=== PATIENT | female | born 1965 | race Caucasian/White ===

== ENCOUNTER 2019-08-09 09:44 | Outpatient (CLI) | payer OTHER, SELFPAY ==
--- NOTE | ~2019-08-09 | DEXA_ITS ---
Bone Density Report Name: Santa Harden Age: 54 Sex: Female Ethnicity: White Date of : 1965 Indication: osteopenia; height loss; prior fracture; hysterectomy; Referring Provider: Jama, Simi Desir Study: Bone densitometry was performed. Exam Date: August 09, 2019 Accession number: [id number] Bone Density: Region BMD T-score Z-score Classification Femoral Neck (Left) 0.661 -1.7 -0.8 Osteopenia Total Hip (Left) 0.863 -0.6 -0.1 Normal Total Hip Bilateral Avg 0.869 -0.6 -0.1 Normal Femoral Neck (Right) 0.702 -1.3 -0.4 Osteopenia Total Hip (Right) 0.875 -0.6 0.0 Normal World Health Organization criteria for BMD impression classify patients as: Normal (T-score at or above -1.0), Osteopenia (T-score between -1.0 and -2.5), or Osteoporosis (T-score at or below -2.5). 10-year Fracture Risk: FRAX not reported because: Prior hip or vertebral fracture Previous Exams: Region Exam Age BMD T-score BMD Change BMD Change Date g/cm2 vs Baseline vs Previous Total Hip(Left) 08/09/2019 54 0.863 -0.6 0.106(14.0%)# 0.133(18.3%)# 09/09/2006 41 0.729 -1.7 -0.027(-3.6%) -0.027(-3.6%) 09/04/2001 36 0.756 -1.5 Total Hip(Right) 08/09/2019 54 0.875 -0.6 0.082(10.4%)# 0.088(11.2%)# 09/09/2006 41 0.786 -1.3 -0.006(-0.8%) -0.006(-0.8%) 09/04/2001 36 0.793 -1.2 *Denotes significance at 95% confidence level, LSC for Total Hip = 0.027 g/cm2 Clinical Information Provided by Patient: Have had a previous hip or vertebral fracture Has had a low trauma fracture Has used the following medications: Vitamin D, Calcium Has the following medical conditions: Hysterectomy Patient maximum height was 67 Menopause Age: 39 Drinks caffeinated beverages Onset of menses at age 18 Number of children 1 Impression: The patient has low bone mass, based on the Left Femoral Neck T-score. The patient has risk factors, including: previous fracture. No significant bone loss was observed. Discussion: INCREASED RISK OF FRACTURE DUE TO HISTORY OF FRACTURE. The patient's previous fracture puts the patient at high risk of a future fracture. In untreated patients, the risk of osteoporotic fracture increases approximately two-fold for each 1.0 SD decrease in T-score. Low bone density is not the only risk factor for fracture; also consider factors such as patient's age, frailty or poor health, risk of falling, risk of injury, previous osteoporotic fracture, family history of osteoporosis, cigarette smoking, low body weight, etc.
== END 2019-08-09 09:45 | disposition home or self-care (01) ==
LOC: ANHIMG 10:00
PROVIDERS: PCP Family Medicine Adolescent Medicine; Visit Provider Physician Assistant
DX: Z78.0 Asymptomatic menopausal state (principal); M85.89 Other specified disorders of bone density and structure, multiple sites
CPT/HCPCS: 77080

== ENCOUNTER 2020-08-13 12:29 | Outpatient (CLI) | payer OTHER, SELFPAY ==
--- NOTE | ~2020-08-13 | MR_ITS ---
EXAMINATION: MR cervical spine wo con EXAM DATE: 08/13/2020 13:37 INDICATION: Left shoulder pain. TECHNIQUE: Multi-sequential, multiplanar MR images of the cervical spine were obtained without contra st. Axial T2, axial T2 MERGE sequence. Sagittal T1, T2, T2 fat saturation images also obtained. Com parison is made to prior examination from 06/16/2013. FINDINGS: There is thoracic fusion hardware. The vertebral bodies are aligned in the AP dimension. V ertebral body and disc heights are well-maintained. The spinal cord signal intensity and intrinsic mo rphology is normal. Cervicomedullary junction is normal in appearance. Mild cervical dextroscoliosis. Paraspinal soft tissue is unremarkable. Level by level evaluation: C2-C3: Disc does not extend beyond the endplate margin. Uncovertebral joint arthropathy: None. Facet joint arthropathy: Moderate left, mild right. Neural foraminal stenosis: No stenosis. Central canal stenosis: No stenosis. C3-C4: Disc does not extend beyond the endplate margin. Uncovertebral joint arthropathy: None. Facet joint arthropathy: Mild to moderate bilateral. Neural foraminal stenosis: No stenosis. Central canal stenosis: No stenosis. C4-C5: Disc does not extend beyond the endplate margin. Uncovertebral joint arthropathy: Minimal bilateral. Facet joint arthropathy: Mild to moderate bilateral. Neural foraminal stenosis: No stenosis. Central canal stenosis: No stenosis. C5-C6: Disc does not extend beyond the endplate margin. Uncovertebral joint arthropathy: Mild bilateral. Facet joint arthropathy: Mild bilateral. Neural foraminal stenosis: No stenosis. Central canal stenosis: No stenosis. C6-C7: There is a minimal diffuse disc bulge. Uncovertebral joint arthropathy: Mild bilateral. Facet joint arthropathy: Minimal bilateral. Neural foraminal stenosis: No stenosis. Central canal stenosis: No stenosis. C7-T1: Disc does not extend beyond the endplate margin. Uncovertebral joint arthropathy: None. Facet joint arthropathy: Minimal bilateral. Neural foraminal stenosis: No stenosis. Central canal stenosis: No stenosis. Development of minimal lower cervical disc disease compared to prior study. IMPRESSION: Mild cervical spondylosis and mild dextroscoliosis. Reviewed, dictated and finalized at location B. 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
== END 2020-08-13 12:30 | disposition home or self-care (01) ==
PROVIDERS: PCP Family Medicine Adolescent Medicine; Visit Provider Physician Assistant
DX: M47.22 Other spondylosis with radiculopathy, cervical region (principal)
CPT/HCPCS: 72141

== ENCOUNTER → 2021-05-07 12:17 | Outpatient (CLI) | payer OTHER, SELFPAY ==
--- NOTE | ~2021-05-07 | MM_ITS ---
EXAMINATION: MM screening pari BI w giovani HISTORY: Screening mammogram TECHNIQUE: Craniocaudal and mediolateral oblique 3-D tomosynthesis images were obtained and synthetic 2-D images were generated. CAD analysis was submitted and interpreted. COMPARISON: 03/07/2019, 11/16/2017, 11/13/2016 bilateral screening mammogram examinations BREAST PARENCHYMAL COMPOSITION: The breasts are heterogeneously dense, which may obscure small masses . FINDINGS: There is no evidence of suspicious mass, calcification, or architectural distortion to sugg est malignancy in either breast. There has been no suspicious interval change. IMPRESSION: 1. No mammographic evidence of malignancy. 2. Recommend routine screening mammography in one year. BI-RADS Category 1: Negative Reviewed, dictated and finalized at location A. 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
== END ==
PROVIDERS: Visit Provider Obstetrics & Gynecology
DX: Z12.31 Encounter for screening mammogram for malignant neoplasm of breast (principal)
CPT/HCPCS: 77063; 77067

== ENCOUNTER → 2021-12-25 09:02 | Outpatient (CLI) | payer OTHER, MEDICARE, SELFPAY ==
--- NOTE | ~2021-12-25 | XR_ITS ---
XR chest 2V DATE: 12/25/2021 09:34 INDICATION: Shortness of breath TECHNIQUE: 2 views COMPARISON: None FINDINGS: Bilateral thoracolumbar and right lower thoracic spinal rods with pedicle screws. Mild thor acic dextroscoliosis. Prominent diffuse osteopenia. Status post right thoracotomy with resection of right seventh rib. Bilateral hyperinflation suggesting obstructive airways disease. No pulmonary infiltrate or consolida tion, pleural effusion or pulmonary vascular congestion or pulmonary mass lesion is evident. Heart size appears within normal limits. Hiatal hernia is suggested. IMPRESSION: Bilateral thoracolumbar spinal rods and lower right lateral thoracic spinal rods and scre ws Bilateral moderate hyperinflation suggesting obstructive airways disease Reviewed, dictated and finalized at location B. IMPRESSION: Bilateral thoracolumbar spinal rods and lower right lateral thoraci c spinal rods and screws Bilateral moderate hyperinflation suggesting obstructive airways disease
== END ==
PROVIDERS: PCP Family Medicine Adolescent Medicine; Visit Provider Physician Assistant
DX: R06.02 Shortness of breath (principal); R91.8 Other nonspecific abnormal finding of lung field
CPT/HCPCS: 71046

== ENCOUNTER 2022-01-02 15:09 | Outpatient (CLI) | payer OTHER, MEDICARE, SELFPAY ==
--- NOTE | ~2022-01-02 | CT_ITS ---
EXAMINATION: CTA chest PE protocol DATE: 01/02/2022 15:59 CDT INDICATION: Dyspnea TECHNIQUE: Computed tomographic angiography (CTA) of the chest was performed with 100 mL Omnipaque-35 0 intravenous contrast. The dose-length product was 231.43 mGy-cm. Maximum intensity projection 3D-re constructions of the aorta and other arteries were constructed by the technologist on a separate work station. Automated exposure control and iterative reconstruction technique were employed. COMPARISON: None. FINDINGS: Study is technically adequate. There are small filling defects in the left lower lobe pulmo nary artery and segmental pulmonary arteries consistent with pulmonary embolism, small thrombus burde n. Evaluation of the peripheral pulmonary arteries somewhat limited by motion artifact. No evidence f or aortic aneurysm or dissection. No thoracic lymphadenopathy. No endobronchial lesions. There is bib asilar dependent atelectasis. Evaluation of lung parenchyma limited by motion artifact. Cardiomegaly. Large hiatal hernia. There are surgical changes consistent with fusion of the thoracic spine with at least partial surgical resection of the lower thoracic spine. IMPRESSION: 1. Pulmonary embolism involving the left lower lobe main pulmonary artery and left lower lobe subsegm ental pulmonary arteries, small thrombus burden. 2: Cardiomegaly. 3: Large hiatal hernia. Kavya Shipman will be called by the front office staff with regards to the results on 01/02/2022 Reviewed, dictated and finalized at location A. IMPRESSION: 1. Pulmonary embolism involving the left lower lobe main pulmonary artery and l eft lower lobe subsegmental pulmonary arteries, small thrombus burden. 2: Cardiomegaly. 3: Large hiatal hernia. Kavya Shipman will be called by the front office staff with regards to the results on 01/02/2022
== END 2022-01-02 15:10 | disposition home or self-care (01) ==
PROVIDERS: PCP Family Medicine Adolescent Medicine; Visit Provider Physician Assistant
DX: R06.00 Dyspnea, unspecified (principal); I51.7 Cardiomegaly; K44.9 Diaphragmatic hernia without obstruction or gangrene; I26.99 Other pulmonary embolism without acute cor pulmonale
CPT/HCPCS: 71275; Q9967

== ENCOUNTER 2022-01-16 12:08 | Outpatient (CLI) | payer OTHER, MEDICARE, SELFPAY ==
--- NOTE | ~2022-01-16 | US_ITS ---
EXAMINATION:US venous doppler LE BI INDICATION:Pulmonary embolism. Leg pain. TECHNIQUE: Multiple grayscale, color flow and Doppler images of the right and left lower extremity de ep venous systems were obtained and reviewed. COMPARISON:No prior studies for comparison. FINDINGS: The common femoral, superficial femoral and popliteal veins demonstrate normal respiratory variation, augmentation and compressibility. Color flow is also seen within the posterior tibial, pe roneal, greater saphenous and profunda veins. IMPRESSION: 1: No lower extremity deep venous thrombosis. Reviewed, dictated and finalized at location A.
== END 2022-01-16 12:09 | disposition home or self-care (01) ==
PROVIDERS: PCP Family Medicine Adolescent Medicine; Visit Provider Physician Assistant
DX: I26.99 Other pulmonary embolism without acute cor pulmonale (principal)
CPT/HCPCS: 93970

== ENCOUNTER 2022-01-29 14:13 | Outpatient (CLI) | payer OTHER, MEDICARE, SELFPAY ==
[2022-01-29 14:29] LABS: Basophils Absolute Auto 0.1 K/mm3 (0.0-0.1); Basophils Percent Auto 1.1 % (0.2-1.2); Eosinophils Absolute Auto 0.4 K/mm3 (0-0.3); Eosinophils Percent Auto 4.7 % (0-4.4); Hematocrit 37.7 % (37.0-47.0); Hemoglobin 11.3 g/dL (12.0-15.0); Immature Granulocyte Absolute 0.02 K/mm3 (0.00-0.031); Immature Granulocyte Percent A 0.3 % (0-0.5); Lymphocytes Absolute Auto 2.05 K/mm3 (0.9-3.2); Lymphocytes Percent Auto 27.7 % (18.3-44.2); Mean Corpuscular Hemoglobin 24.6 pg (26-34); Mean Platelet Volume 8.9 fl (7.4-10.4); Monocytes Absolute Auto 0.6 K/mm3 (0.1-0.6); Monocytes Percent Auto 7.6 % (2.6-8.5); Neutrophils Absolute Auto 4.3 K/mm3 (1.3-6.7); Neutrophils Percent Auto 58.6 % (45.5-73.1); Platelet Count Result 404 k/mm3 (150-375); Red Cell Distribution Width 17.8 % (11.5-14.5); White Blood Count 7.4 K/mm3 (4.5-10.0)
[2022-01-29 15:24] LABS: Iron 34 ug/dL (37-170)
[2022-01-29 15:37] LABS: Alanine Aminotransferase 25 U/L (6-35); Albumin Level 4.6 g/dL (3.5-5.1); Alkaline Phosphatase 87 U/L (38-126); Anion Gap 12 mmol/L (8-16); Aspartate Amino Transferase 23 U/L (14-36); Bilirubin,Total 0.3 mg/dL (0.2-1.3); Blood Urea Nitrogen 14 mg/dL (7-17); Calcium 9.7 mg/dL (8.4-10.2); Carbon Dioxide 25 mmol/L (22-30); Chloride 102 mmol/L (98-107); Estimated Glomerular Filt Rate > 60; Glucose 103 mg/dL (65-110); Potassium 3.8 mmol/L (3.4-5.0); Sodium 139 mmol/L (137-145)
[2022-01-29 15:38] LABS: Percent Iron Saturation 7 % (20-50)
[2022-01-29 16:47] LABS: Folic Acid > 20.0 ng/mL (2.76->20)
== END 2022-01-29 14:14 | disposition home or self-care (01) ==
LOC: ANHLAB 14:15
PROVIDERS: PCP Family Medicine Adolescent Medicine; Visit Provider Internal Medicine Hematology & Oncology
DX: D64.9 Anemia, unspecified (principal)
CPT/HCPCS: 36415; 80053; 82607; 82728; 82746; 83540; 83550; 85025

== ENCOUNTER 2022-04-07 14:29 | Outpatient (CLI) | payer OTHER, MEDICARE, SELFPAY ==
--- NOTE | ~2022-04-07 | CT_ITS ---
EXAMINATION: CTA chest PE protocol DATE: 04/07/2022 15:03 INDICATION: Pulmonary embolism TECHNIQUE: Computed tomography angiography (CTA) of the chest was performed with 100 mL Omnipaque-350 intravenous contrast timed to evaluate the pulmonary arteries. Coronal maximum intensity projection 3D-reconstructions were created by the technologist. Automated exposure control and iterative reconst ruction technique were employed. Exam dose: 244.04 mGy-cm total exam DLP. COMPARISON: 01/02/2022 CT pulmonary scan FINDINGS: Occasional residual small filling defects are suggested in the left lower lobe pulmonary ar teries. No pulmonary embolism and no right ventricular strain is noted otherwise. No thoracic aortic aneurysm or dissection. Mild cardiomegaly. No pericardial or pleural effusion. No hilar or mediastinal mass lesion or lymphadenopathy. There is some focal atelectasis or fibrotic change adjacent to some spinal hardware projecting into t he medial aspect of the right lower lobe. The lungs are otherwise clear of consolidation. There is a large sliding hiatal hernia. Bilateral thoracic spinal rods and pedicle screws. Bone grafts in the lower thoracic spine. IMPRESSION: Mild residual left lower lobe pulmonary emboli; no right heart strain noted Reviewed, dictated and finalized at Location A. Reviewed, dictated and finalized at location A. IMPRESSION: Mild residual left lower lobe pulmonary emboli; no right heart str ain noted
[2022-04-07 14:55] LABS: Estimated Glomerular Filt Rate 43
== END 2022-04-07 14:30 | disposition home or self-care (01) ==
LOC: ANHIMG 14:34
PROVIDERS: PCP Family Medicine Adolescent Medicine; Visit Provider Internal Medicine Hematology & Oncology
DX: I26.99 Other pulmonary embolism without acute cor pulmonale (principal); R91.8 Other nonspecific abnormal finding of lung field
CPT/HCPCS: 71275; Q9967

== ENCOUNTER 2022-06-17 12:40 | Outpatient (CLI) | payer OTHER, MEDICARE, SELFPAY ==
--- NOTE | 2022-06-17 13:01 | ECHO_ITS ---
Patient Info Name: Santa Harden Age: 57 years : 1965 Gender: Female Ht: 66 in Wt: 148 lbs BSA: 1.78 m2 HR: 85 bpm BP: 118 / 80 mmHg Technical Quality: Fair Exam Date: 06/17/2022 1:08 PM Exam Location: [facility] Patient Status: Outpatient Admit Date: 06/17/2022 Staff Ordering Physician: Bruce Jacobo APRN Steel Shot Header Operator: Alejandra Baltazar RDCS Attending Provider: Bruce Jacobo APRN Referring Physician: Donnell CRAWFORD; Exam Type: CA echo doppler color flow Study Info Indications I26.99 - Other pulmonary embolism without acute cor pulmonale Complete two-dimensional, color flow and Doppler transthoracic echocardiogram is performed. Summary 1. Complete two-dimensional, color flow and Doppler transthoracic echocardiogram is performed. 2. Left ventricular chamber dimension is normal. 3. Left ventricular systolic function is normal, estimated at 65-70%. 4. The left ventricular diastolic function is grade I diastolic dysfunction. 5. E/e' 14 is mildly elevated. 6. Global longitudinal strain is normal at -19.3%. 7. Left atrial chamber dimension is mildly enlarged. 8. The mitral valve has mildly calcified annulus. 9. No pulmonary hypertension, estimated pulmonary arterial systolic pressure is 35 mmHg. Left Ventricle E/e' 14 is mildly elevated. Global longitudinal strain is normal at -19.3%. Left ventricular chamber dimension is normal. Left ventricular systolic function is normal, estimated at 65-70%. The left ventricular diastolic function is grade I diastolic dysfunction. Right Ventricle Right ventricular chamber dimension is normal. Right ventricular systolic function is normal. Left Atria Reverberation artifact seen in left atrium. Left atrial chamber dimension is mildly enlarged. Right Atria Right atrial chamber dimension is normal. Aortic Valve The aortic valve is trileaflet. There is no aortic valve stenosis. There is no aortic valve regurgitation. Pulmonic Valve There is no pulmonic regurgitation. Mitral Valve The mitral valve has mildly calcified annulus. There is no mitral valve stenosis. There is no mitral valve regurgitation. Tricuspid Valve There is no tricuspid valve regurgitation. No pulmonary hypertension, estimated pulmonary arterial systolic pressure is 35 mmHg. Pericardium/Pleural There is no pericardial effusion. Inferior Vena Cava Normal inferior vena cava with >50% collapse upon inspiration consistent with normal right atrial pressure, 5 mmHg. Aorta The aortic root size at the sinus of Valsalva is normal. Left Ventricular Outflow Tract Name Value Normal LVOT 2D LVOT Diameter 2.0 cm LVOT Doppler LVOT Peak Gradient 7 mmHg LVOT Mean Gradient 4 mmHg LVOT VTI 26 cm LVOT VTI/AV VTI Ratio 0.9 LVOT Stroke Volume 85 ml LVOT CO 6.9 l/min LVOT CI 3.9 l/min/m2 Pulmonic Valve
== END 2022-06-17 12:41 | disposition home or self-care (01) ==
LOC: ANHCARD 12:41
PROVIDERS: PCP Family Medicine Adolescent Medicine; Visit Provider Nurse Practitioner Family
DX: I26.99 Other pulmonary embolism without acute cor pulmonale (principal); R06.00 Dyspnea, unspecified
CPT/HCPCS: 93306

== ENCOUNTER → 2022-09-22 15:00 | Outpatient (CLI) | payer OTHER, MEDICARE, SELFPAY ==
--- NOTE | ~2022-09-22 | MM_ITS ---
EXAMINATION: MM screening [facility] BI w giovani HISTORY: Screening mammogram TECHNIQUE: Craniocaudal and mediolateral oblique 3-D tomosynthesis images were obtained and synthetic 2-D images were generated. CAD analysis was submitted and interpreted. COMPARISON: 05/07/2021, 03/07/2019, 11/16/2017 BREAST PARENCHYMAL COMPOSITION: There are scattered areas of fibroglandular density. FINDINGS: No suspicious mass, calcification, or architectural distortion are identified in either bro ast to suggest malignancy. There has been no suspicious interval change. IMPRESSION: 1. No mammographic evidence of malignancy. 2. Recommend routine screening mammography in one year. BI-RADS Category 1: Negative Reviewed, dictated and finalized at location A.
== END ==
PROVIDERS: PCP Obstetrics & Gynecology; Visit Provider Obstetrics & Gynecology
DX: Z12.31 Encounter for screening mammogram for malignant neoplasm of breast (principal)
CPT/HCPCS: 77063; 77067

== ENCOUNTER 2023-12-21 13:28 | Outpatient (CLI) | payer OTHER, MEDICARE, SELFPAY ==
--- NOTE | 2023-12-21 | ECG_ITS ---
Test Date: 2023-12-21 14:00:25 Measurements Intervals [place] Rate: 77 P: 70 AK: 166 QRS: 21 QRSD: 81 T: 46 QT: 354 QTc: 401 Interpretive Statements SINUS RHYTHM RSR' IN V1 OR V2, PROBABLY NORMAL VARIANT NORMAL ECG No previous ECG available for comparison Electronically Signed On 12-21-2023 18:07:27 CDT by Milan Frias D.O.
[2023-12-21 14:09] LABS: Alanine Aminotransferase 27 U/L (6-35); Albumin Level 4.6 g/dL (3.5-5.1); Alkaline Phosphatase 71 U/L (38-126); Anion Gap 11 mmol/L (4-12); Aspartate Amino Transferase 26 U/L (14-36); Bilirubin,Total 0.4 mg/dL (0.2-1.3); Blood Urea Nitrogen 19 mg/dL (7-17); Calcium 9.7 mg/dL (8.4-10.2); Carbon Dioxide 26 mmol/L (22-30); Chloride 100 mmol/L (98-107); Estimated Glomerular Filt Rate 57; Glucose 114 mg/dL (65-110); Potassium 4.1 mmol/L (3.4-5.0); Sodium 137 mmol/L (137-145)
== END 2023-12-21 13:29 | disposition home or self-care (01) ==
LOC: ANHLAB 13:31
PROVIDERS: PCP Family Medicine Adolescent Medicine; Visit Provider Podiatrist Foot & Ankle Surgery
DX: Z01.818 Encounter for other preprocedural examination (principal)
CPT/HCPCS: 36415; 80053; 93005

== ENCOUNTER 2023-12-22 15:15 | Outpatient (CLI) | payer OTHER, MEDICARE, SELFPAY ==
--- NOTE | ~2023-12-22 | MR_ITS ---
MRI of the right foot CLINICAL HISTORY: Pain TECHNIQUE: Axial proton-density and proton-density fat-sat images, sagittal T1-weighted and STIR imag es, and coronal T1-weighted and proton-density fat-sat images were performed. FINDINGS: There is a nondisplaced fracture of the cuboid bone with T1 hypointense fracture lines and surrounding marrow edema. There is additional suspected fracture at the distal, lateral aspect of the medial cuneiform and possibly at the medial aspect of the base of the second metatarsal, suspicious for Lisfranc ligament/articulation fracture injury. Additional amorphous marrow edema of the middle a nd lateral cuneiforms is compatible with bone contusions. Flexor and extensor tendons are intact. Intrinsic musculature of the foot unremarkable. No soft tissu e mass or fluid collection evident. IMPRESSION: Suspected fractures at the medial cuneiform and base of second metatarsal, as detailed above, suspici ous for Lisfranc injury. Consider CT scan for better evaluation of fine bony detail. Nondisplaced cuboid fracture, as detailed above. Additional bone contusions of the middle and lateral cuneiforms. Reviewed, dictated and finalized at location M. IMPRESSION: Suspected fractures at the medial cuneiform and base of second metatarsal, as d etailed above, suspicious for Lisfranc injury. Consider CT scan for better eval uation of fine bony detail. Nondisplaced cuboid fracture, as detailed above. Additional bone contusions of the middle and lateral cuneiforms.
== END 2023-12-22 15:16 ==
PROVIDERS: Visit Provider Podiatrist Foot & Ankle Surgery
DX: S92.214A Nondisplaced fracture of cuboid bone of right foot, initial encounter for closed fracture (principal); X58.XXXA Exposure to other specified factors, initial encounter
CPT/HCPCS: 73718

== ENCOUNTER 2024-05-10 11:34 | Outpatient (CLI) | payer OTHER, MEDICARE, SELFPAY ==
--- NOTE | ~2024-05-10 | DEXA_ITS ---
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 Exam Date: May 10, 2024 Accession number: [id number] Bone Density: Region BMD T-score Z-score Classification AP Spine(L3, L4) 0.941 -1.5 -0.2 Osteopenia Femoral Neck (Left) 0.635 -1.9 -0.8 Osteopenia Total Hip (Left) 0.759 -1.5 -0.7 Osteopenia Femoral Neck (Right) 0.698 -1.4 -0.2 Osteopenia Total Hip (Right) 0.830 -0.9 -0.1 Normal Femoral Neck Mean 0.666 -1.6 -0.5 Osteopenia Total Hip Mean 0.794 -1.2 -0.4 Osteopenia World Health Organization criteria for BMD impression classify patients as: Normal (T-score at or above -1.0), Osteopenia (T-score between -1.0 and -2.5), or Osteoporosis (T-score at or below -2.5). 10-year Fracture Risk: FRAX not reported because: Prior hip or vertebral fracture Treated for osteoporosis Clinical Information Provided by Patient: Have had a previous hip or vertebral fracture Has had a low trauma fracture Is being treated for osteoporosis Has used the following medications: Reclast (i.e. zoledronate), Vitamin D, Calcium Has the following medical conditions: Asthma or Emphysema, Hysterectomy Patient maximum height was 67 Menopause Age: 50 Does not regularly consume dairy products Drinks caffeinated beverages Onset of menses at age 18 Number of children 1 Missed period for more than 6 months in a row Impression: The patient has low bone mass, based on the Left Femoral Neck T-score. The patient has risk factors, including: previous fracture. Discussion: It is important to ask patients whether they are taking their medications and to encourage continued and appropriate compliance with their osteoporosis therapies to reduce fracture risk. It is also important to review their risk factors and encourage appropriate calcium and vitamin D intakes, exercise, fall prevention and other lifestyle measures. Follow-Up: Consider a repeat BMD and Vertebral Fracture Assessment (VFA) exam in 2 years or sooner if medically necessary, to reassess this patient's status. Reported by: WILFREDO on 05/10/2024 11:58:00 AM. Reviewed, dictated and finalized at location A.
--- NOTE | ~2024-05-10 | MM_ITS ---
EXAMINATION: MM screening par[facility] BI w giovani HISTORY: Screening TECHNIQUE: Craniocaudal and mediolateral oblique 3-D tomosynthesis images were obtained and synthetic 2-D images were generated. CAD analysis was submitted and interpreted. COMPARISON: Comparison to multiple prior studies sequentially, with oldest reviewed study dated 01/2017. BREAST PARENCHYMAL COMPOSITION: Not dense: There are scattered areas of fibroglandular density. FINDINGS: There are 2 small masses in the lower inner quadrant of the right breast partially obscured by fibroglandular tissue. The left breast is stable without evidence for malignancy. IMPRESSION: 1. Small right breast masses in the lower inner quadrant, new compared with prior studies. 2. Additional mammographic views and possible breast ultrasound are recommended. BI-RADS Category 0: Incomplete: Needs additional imaging evaluation. Reviewed, dictated and finalized at location B. 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 Small right breast masses in the lower inner quadrant, new compared with james or studies. 2. Additional mammographic views and possible breast ultrasound are recommended . BI-RADS Category 0: Incomplete: Needs additional imaging evaluation.
== END 2024-05-10 11:35 | disposition home or self-care (01) ==
PROVIDERS: Visit Provider Family Medicine Adolescent Medicine
DX: Z12.31 Encounter for screening mammogram for malignant neoplasm of breast (principal); Z78.0 Asymptomatic menopausal state; R92.8 Other abnormal and inconclusive findings on diagnostic imaging of breast; M85.89 Other specified disorders of bone density and structure, multiple sites
CPT/HCPCS: 77063; 77067; 77080

== ENCOUNTER 2024-05-13 10:04 | Outpatient (CLI) | payer OTHER, MEDICARE, SELFPAY ==
--- NOTE | ~2024-05-13 | MMUS_ITS ---
EXAMINATION: MM diagnostic pari RT w giovani, US breast RT complete HISTORY: Follow-up right breast masses TECHNIQUE: Additional 3-D tomosynthesis images of the right breast were performed and synthetic 2-D i mages were generated. CAD analysis was submitted and interpreted. High resolution complete right ryan st ultrasound was performed. COMPARISON: Comparison to multiple prior studies sequentially, with oldest reviewed study dated 01/2017. BREAST PARENCHYMAL COMPOSITION: Not dense: There are scattered areas of fibroglandular density. FINDINGS: MAMMOGRAPHIC FINDINGS: There is a persistent 2-3 mm mass medial aspect of the right breast on CC view. No suspicious There a re no suspicious calcifications or architectural distortion. ULTRASOUND: Complete US of all 4 quadrants of the right breast/s and retroareolar region was reviewed. At 9:00, 5 cm from the nipple there is a 5 mm cyst. At 10:00, 5 cm from the nipple located deep there is a hypo echoic area measuring 12 x 10 x 4 mm which may represent a mass or normal superimposed fibroglandular tissue, likely benign. IMPRESSION: 1. Probable benign hypoechoic area at 10:00, 5 cm from the nipple in the right breast. 2. Recommend 6 month follow-up Limited right breast ultrasound BI-RADS category 3, probably benign findings. Reviewed, dictated and finalized at location [facility]. [facility] IMPRESSION: 1. Probable benign hypoechoic area at 10:00, 5 cm from the nipple in the right breast. 2. Recommend 6 month follow-up Limited right breast ultrasound BI-RADS category 3, probably benign findings.
== END 2024-05-13 10:05 | disposition home or self-care (01) ==
PROVIDERS: Visit Provider Family Medicine Adolescent Medicine
DX: R92.8 Other abnormal and inconclusive findings on diagnostic imaging of breast (principal)
CPT/HCPCS: 76641; 77061; 77065; G0279

== ENCOUNTER 2024-05-17 09:36 | Outpatient (CLI) | payer OTHER, MEDICARE, SELFPAY ==
[2024-05-17 09:50] LABS: Basophils Absolute Auto 0.1 K/mm3 (0.0-0.1); Basophils Percent Auto 1.2 % (0.2-1.2); Eosinophils Absolute Auto 0.4 K/mm3 (0-0.3); Eosinophils Percent Auto 6.7 % (0-4.4); Hematocrit 40.6 % (37.0-47.0); Immature Granulocyte Absolute 0.02 K/mm3 (0.00-0.031); Immature Granulocyte Percent A 0.3 % (0-0.5); Lymphocytes Absolute Auto 1.24 K/mm3 (0.9-3.2); Lymphocytes Percent Auto 20.7 % (18.3-44.2); Mean Corpuscular Hemoglobin 29.5 pg (26-34); Mean Corpuscular Volume 92.3 fl (80-100); Mean Platelet Volume 8.9 fl (7.4-10.4); Monocytes Absolute Auto 0.5 K/mm3 (0.1-0.6); Neutrophils Absolute Auto 3.8 K/mm3 (1.3-6.7); Neutrophils Percent Auto 63.1 % (45.5-73.1); Platelet Count Result 375 k/mm3 (150-375); Red Cell Distribution Width 13.3 % (11.5-14.5)
[2024-05-17 14:09] LABS: Anion Gap 7 mmol/L (4-12); Blood Urea Nitrogen 19 mg/dL (7-17); Calcium 9.9 mg/dL (8.4-10.2); Carbon Dioxide 25 mmol/L (22-30); Chloride 105 mmol/L (98-107); Estimated Glomerular Filt Rate > 60; Glucose 81 mg/dL (65-110); Potassium 3.9 mmol/L (3.4-5.0); Sodium 137 mmol/L (137-145)
[2024-05-17 14:21] LABS: Iron 95 ug/dL (37-170)
[2024-05-17 14:33] LABS: Percent Iron Saturation 24 % (20-50)
[2024-05-17 15:13] LABS: Folic Acid > 20.0 ng/mL (2.76->20)
== END 2024-05-17 09:37 | disposition home or self-care (01) ==
LOC: ANHLAB 09:37
PROVIDERS: Visit Provider Internal Medicine Hematology & Oncology
DX: D64.9 Anemia, unspecified (principal)
CPT/HCPCS: 36415; 80048; 82607; 82728; 82746; 83540; 83550; 85025

== ENCOUNTER 2024-06-21 11:04 | Outpatient (CLI) | payer OTHER, MEDICARE, SELFPAY ==
--- NOTE | 2024-06-21 12:25 | ECG_ITS ---
Test Date: 2024-06-21 12:31:27 Measurements Intervals [place] Rate: 64 P: 17 HI: 159 QRS: 25 QRSD: 86 T: 42 QT: 380 QTc: 393 Interpretive Statements SINUS RHYTHM WITH SINUS ARRHYTHMIA INCOMPLETE RIGHT BUNDLE BRANCH BLOCK Compared to ECG 12/21/2023 14:00:25 No significant changes Electronically Signed On 06-21-2024 15:34:09 HEAT AND FROST INSULATOR by Ayush Conteh M.D.
== END 2024-06-21 11:05 | disposition home or self-care (01) ==
PROVIDERS: PCP Family Medicine Adolescent Medicine; Visit Provider Podiatrist Foot & Ankle Surgery
DX: R03.0 Elevated blood-pressure reading, without diagnosis of hypertension (principal); I45.10 Unspecified right bundle-branch block
CPT/HCPCS: 93005

== ENCOUNTER 2024-08-29 10:07 | Outpatient (CLI) | payer OTHER, MEDICARE, SELFPAY ==
[2024-08-29 10:30] LABS: Basophils Absolute Auto 0.1 K/mm3 (0.0-0.1); Basophils Percent Auto 1.4 % (0.2-1.2); Eosinophils Absolute Auto 0.2 K/mm3 (0-0.3); Eosinophils Percent Auto 3.4 % (0-4.4); Hematocrit 37.6 % (37.0-47.0); Hemoglobin 12.1 g/dL (12.0-15.0); Immature Granulocyte Absolute 0.01 K/mm3 (0.00-0.031); Immature Granulocyte Percent A 0.2 % (0-0.5); Lymphocytes Absolute Auto 1.13 K/mm3 (0.9-3.2); Lymphocytes Percent Auto 22.5 % (18.3-44.2); Mean Corpuscular HGB Conc 32.2 g/dl (32-36); Mean Corpuscular Hemoglobin 28.7 pg (26-34); Mean Corpuscular Volume 89.3 fl (80-100); Mean Platelet Volume 8.9 fl (7.4-10.4); Monocytes Absolute Auto 0.3 K/mm3 (0.1-0.6); Monocytes Percent Auto 6.8 % (2.6-8.5); Neutrophils Absolute Auto 3.3 K/mm3 (1.3-6.7); Neutrophils Percent Auto 65.7 % (45.5-73.1); Platelet Count Result 322 k/mm3 (150-375); Red Blood Count 4.21 M/mm3 (4.2-5.4); Red Cell Distribution Width 14.1 % (11.5-14.5)
--- OUTSIDE RECORDS SUMMARY | 2024-08-29 11:39 | XMS_ITS | Encounter Summary ---
Author Organization [facility] Address [address] [place] [id number] Care Team Providers Care Sales And Support Center Agent Name Role Phone Jon Landin MD Primary Care Provider [phone]- [phone] Encounter Details Date Type Department Care Team (Late st Contact Info) Description 01/21/2020 Prep for Procedure [facility] [place], [place] [id number] Rivas Mark MD 3 [facility] Curt [address] [place] [address] [id number] Social History Tobacco Use Types Packs/Day Years Used Date Smoking Tobacco: Never Smokeless Tobacco: Never Alcohol Use Standard Drinks/Week Comments Yes 0 (1 standard drink = 0.6 oz pur e alcohol) few beers on weekends Comments No Sex and Gender Information Value Date Recorded Sex Assigned at Not on file Legal Sex Female 7:42 PM CDT Gender Identity Not on file Sexual Orientation Not on file COVID-19 Exposure Response Date Recorded In the last month, have you been in contact with someone who was confirmed or suspected to have Coronavirus / COVID-19? No / Unsure 01/24/2020 6:36 AM CDT documented as of this encounter Plan of Treatment Not on file documented as of this encounter Results * PRE-SURGICAL/PRE-PROCEDURE CORONAVIRUS (COVID 19) (01/21/2020 9:44 AM CDT) CORONAVIRUS SARS COV 2 PCR (RESP) NOT DETECTED NOT DETECTED 01/22/2020 10:18 PM CDT [facility] Comment: A Not Detected (negative) test result for this test means that SARS- CoV-2 RNA was not present in the specimen above the limit of detection. A negative result does not rule out the possibility of COVID-19 and should not be used as the sole basis for treatment or patient management decisions. If COVID-19 is still suspected, based on exposure history together with other clinical findings, re-testing should be considered in consultation with public health authorities. Laboratory test results should always be considered in the context of clinical observations and epidemiological data in making a final diagnosis and patient management decisions. Please review the Fact Sheets and FDA authorized labeling available for health care providers and patients using the following websites: https://www.[employer]/home/Covid-19/HCP/QuestIVD/fact- sheet.html https://www.[employer]/home/Covid-19/Patients/ QuestIVD/fact-sheet.html This test has been authorized by the FDA under an Emergency Use Authorization (EUA) for use by authorized laboratories. Due to the current public health emergency, [employer] [employer] is receiving a high volume of samples from a wide variety of swabs and media for COVID-19 testing. In order to serve patients during this public health crisis, samples from appropriate clinical sources are being tested. Negative test results derived from specimens received in non-commercially manufactured viral collection and transport media, or in media and sample collection kits not yet authorized by FDA for COVID-19 testing should be cautiously evaluated and the patient potentially subjected to extra precautions such as additional clinical monitoring, including collection of an additional specimen. Methodology: Nucleic Acid Amplification Test (NAAT) includes PCR or TMA Additional information about COVID-19 can be found at the [employer] website: www.[employer]/Covid19. Test performed at [facility] [address] [place] [address] Director: KAROLINE TROTTER DO,MPH NASOPHARYNGEAL SWAB / Unknown 01/21/2020 9:44 AM CDT Rivas Mark MD MICROBIOLOGY - GENERAL TRISH S[place] Final Result [facility] [address] [place] [address], documented in this encounter Visit Diagnoses Diagnosis Encounter for screening colonoscopy- Primary Special screening for malignant neoplasms, colon documented in this encounter Additional Health Concerns Infection Onset Date Last Indicated Resolved Time COVID-19 Rule Out 01/21/2020 01/21/2020 01/22/2020 10:18 PM CDT documented as of this encounter Care Teams Sales And Support Center Agent Relationship Specialty Start Date End Date Jon Landin MD [address] [address] PCP - General FAMILY PRACTICE 01/24/20 documented as of this encounter
--- OUTSIDE RECORDS SUMMARY | 2024-08-29 11:39 | XMS_ITS | Clinical Summary ---
Author Organization [facility] Address [address] [place] [address] Care Team Providers Care Ux Information Architect Name Role Phone Jon Landin MD Primary Care Provider [phone]- [phone] Allergies Active Allergy Reactions Criticality Noted Date Comments Penicillins Unknown 01/19/2020 Tetanus Toxoids Unknown 01/19/2020 Medications zolpidem 10 MG tablet 12/23/2019 Active cyclobenzaprine 10 MG tablet Take 10 mg by mouth as needed for Muscle Spasms. Active Albuterol (VENTOLIN IN) Inhale into the lungs as needed. Active Active Problems No known active problems Social History Tobacco Use Types Packs/Day Years [...] on file Sexual Orientation Not on file Last Filed Vital Signs Vital Sign Reading Time Taken Comments Blood Pressure 124/94 01/24/2020 9:15 AM CDT Pulse 71 01/24/2020 9:15 AM CDT Temperature 36.5 C (97.7 F) 01/24/2020 8:52 AM CDT Respiratory Rate 17 01/24/2020 9:15 AM CDT Oxygen Saturation 97% 01/24/2020 9:15 AM CDT Inhaled Oxygen Concentration - - Weight 65.3 kg (144 lb) 01/19/2020 2:14 PM CDT Height 167.6 cm (5' 6 ) 01/19/2020 2:14 PM CDT Body Mass Index 23.24 01/19/2020 2:14 PM CDT Plan of Treatment Health Maintenance Due Date Last Done Comments Annual Physical 1970 Hepatitis C 1985 DTaP, Tdap and Td Vaccines ( 1 - Tdap) 1986 Hepatitis B Vaccines (1 of 3 - 19+ 3-dose series) 1986 Mammogram Screening 2007 Zoster Vaccines (1 of 2) 2017 COVID-19 Vaccine (1 - 2023-2 5 season) 2024 Influenza Adult (#1) 2024 Colorectal Cancer Screening Colonoscopy (10 Years) 01/23/2030 01/24/2020 Meningococcal B Vaccine Aged Out No l onger eligible based on patient's age to complete this topic Meningococcal Vaccine Aged Out No abdirizak rogelio eligible based on patient's age to complete this topic Pneumococcal Vaccine: Pediat rics (0 to 5 Years) and At-Risk Patients (6 to 64 Years) Aged Out No longer eligi ble based on patient's age to complete this topic RSV Immunizations Under 20 Months Aged Out No longer eligible based on patient's age to complete this topic Medical Devices Implanted Type Area Acupressurist Device Identifier Shelf Expiration Date Model / Serial / Lot Dejuan Implanted:Qty: 2 Dejuan Back Screw Implanted:Qty: 26 Screw Back Insurance Care Teams Ux Information Architect Relationship Specialty Start Date End Date Jon Landin MD [address] [address] PCP - General FAMILY PRACTICE 01/24/20
--- OUTSIDE RECORDS SUMMARY | 2024-08-29 11:39 | XMS_ITS | Clinical Summary ---
Author Organization [facility] Address [address] [facility] [address] Care Team Providers Care Technical Sales Advisor Name Role Phone Jon Landin MD Primary Care Provider [phone]- [phone] Allergies Active Allergy Reactions Criticality Noted Date Comments Penicillins Other (See Comments),Unknown 01/19/2020 Reaction: TETANUS, , Tetanus Toxoid Unknown 01/29/2022 Medications Xarelto 20 mg Tablet Take 20 mg by mouth daily. 2 Active zolpidem (AMBIEN) 10 mg tablet TAKE 1 TABLET BY MOUTH EVERY DAY AT BEDTIME NEEDED FOR SLEEP 2 Active HYDROcodone-patricia taminophen (NORCO) 5-325 mg tablet Take 1 Tablet by mouth every 6 hours as needed. 2 Active cyclobenzaprine (FLEXERIL) 10 mg tablet TAKE 1 TABLET BY MOUTH THREE TIMES DAILY NEEDED FOR MUSCLE SPASMS 2 Active fluticasone propionate (FLONASE) 50 mcg/spray [place], Suspension nasal inhaler Administer 2 Sprays in each nostril daily. shake before using 2 Active Dulera 200-5 mcg/actuation inhaler Take 2 Puffs by inhalation 2 times daily. 2 Active ondansetron (ZOFRAN ODT) 4 mg Tablet, Rapid Dissolve DISSOLVE 1 TABLET ON THE TONGUE EVERY 8 HOURS NEEDED FOR NAUSEA OR VOMITING 2 Active Duexis 800-26.6 mg Tablet 2 Active ondansetron (Zofran) 4 mg Tablet Take 1 Tablet (4 mg) by mouth every 8 hours as needed for Nausea/Emesis. 30 Tablet 1 Active lisinopriL (PRINIVIL) 40 mg tablet Take 40 mg by mouth daily. Active Active Problems Problem Noted Date Diagnosed Date Acute pulmonary embolism 01/29/2022 Iron deficiency anemia 01/29/2022 Encounters Date Type Department Care Team Description 06/30/2024 External Device Data STL ABSTRACTION Provider, Abstract 06/21/2024 External Device Data [facility] ABSTRACTION Provider, Abstract from Last 3 Months Family History Relation Name Status Comments Brother Father Mother Social History Tobacco Use Types Packs/Day Years Used Date Smoking Tobacco: Never Smokeless Tobacco: Never Tobacco Cessation:Counseling Given: Not Answered Alcohol Use Standard Drinks/Week Comments Yes 0 (1 standard drink = 0.6 oz pur e alcohol) Comments Unknown Sex and Gender Information Value Date Recorded Sex Assigned at Not on file Legal Sex Female 11:12 PM CDT Gender Identity Not on file Sexual Orientation Not on file Last Filed Vital Signs Vital Sign Reading Time Taken Comments Blood Pressure 135/77 07/21/2023 3:39 PM NETWORK TECHNICAL ANALYST Pulse 94 07/21/2023 3:39 PM NETWORK TECHNICAL ANALYST Temperature 36.4 C (97.6 F) 07/21/2023 3:39 PM NETWORK TECHNICAL ANALYST Respiratory Rate 14 07/21/2023 3:39 PM NETWORK TECHNICAL ANALYST Oxygen Saturation 97% 07/21/2023 3:39 PM NETWORK TECHNICAL ANALYST Inhaled Oxygen Concentration - - Weight 60.8 kg (134 lb) 07/21/2023 3:39 PM NETWORK TECHNICAL ANALYST Height 167.6 cm (5' 6 ) 01/29/2022 1:33 PM CDT Body Mass Index 21.63 01/29/2022 1:33 PM CDT Plan of Treatment Upcoming Encounters Date Type Department Care Team (Late st Contact Info) Description 09/07/2024 2:15 PM CDT Office Visit [facility] Oncology and Hematology - [place] [address] [facility] [address] [place] [address] Alfonzo Tate MD [address] [facility] [address] [place] [address] Health Maintenance Due Date Last Done Comments DTAP/TDAP/TD VACCINES (1 - Tdap) 1986 HEPATITIS B VACCINES (1 of 3 - 19+ 3-dose series) 03/08 BREAST CANCER SCREENING 2007 COLORECTAL SCREENING 2012 Colorectal Cancer Screening 2012 FIT-DNA Q 3 years 2012 FIT/FOBT Q 1 year 2012 Flex Sig/CT Colonography Q 5 years 2012 ZOSTER VACCINE (1 of 2) 2017 INFLUENZA VACCINE (#1) 2024 03/29/2022 Preventative Visit- Commercial 06/08/2024 Insurance MEDICARE PART A AND B datapine [id number] Member Subscriber Plan / Payer (Ef fective 2021-Present) Name:HardenSanta Relation to Subscriber:Spouse Name:BUCKY HARDEN Date of :1965 (Home) Address: [address] [place] [address] Payer ID:[id number] (NAIC) Type:O Address: [facility] [address] [place] [id number] Care Teams Technical Sales Advisor Relationship Specialty Start Date End Date Jon Landin MD [address] [place] [phone] PCP - General Family Practice 07/16/22
[2024-08-29 11:46] LABS: Iron 143 ug/dL (37-170)
[2024-08-29 12:00] LABS: Percent Iron Saturation 40 % (20-50)
[2024-08-29 12:01] LABS: Anion Gap 8 mmol/L (4-12); Blood Urea Nitrogen 15 mg/dL (7-17); Calcium 9.6 mg/dL (8.4-10.2); Carbon Dioxide 24 mmol/L (22-30); Chloride 106 mmol/L (98-107); Estimated Glomerular Filt Rate > 60; Glucose 112 mg/dL (65-110); Potassium 4.1 mmol/L (3.4-5.0); Sodium 138 mmol/L (137-145)
[2024-08-29 12:52] LABS: Folic Acid > 20.0 ng/mL (2.76->20); Vitamin B12 > 1000.0 pg/mL (239-931)
== END 2024-08-29 10:08 | disposition home or self-care (01) ==
LOC: ANHLAB 10:09
PROVIDERS: PCP Family Medicine Adolescent Medicine; Visit Provider Internal Medicine Hematology & Oncology
DX: D64.9 Anemia, unspecified (principal)
CPT/HCPCS: 36415; 80048; 82607; 82728; 82746; 83540; 83550; 85025

== ENCOUNTER 2024-11-15 08:34 | Outpatient (CLI) | payer OTHER, MEDICARE, SELFPAY ==
--- NOTE | ~2024-11-15 | US_ITS ---
US breast RT limited 11/15/2024 08:49 Indication: Follow-up small right breast mass Procedure: High-resolution Limited ultrasound of the right breast Comparison: Ultrasound dated 05/13/2024 Findings: At 10:00, 5 cm from the nipple there is an oval parallel oriented hypoechoic mass measuring 1.4 x 1.2 x 0.4 cm compared with 1.1 x 1.1 x 0.4 cm on prior examination. No internal vascularity or posterior features. There is suggestion of echogenic hilum, most likely intramammary lymph node. Impression: 1: Slight increased size of right breast mass at 10:00, 5 cm from the nipple, although there are jan gn sonographic characteristics. Six-month follow-up ultrasound recommended. BI-RADS CATEGORY 3-PROBABLY BENIGN FINDING RECOMMENDATION: 6 month follow up recommended. Reviewed, dictated and finalized at location [] Impression: 1: Slight increased size of right breast mass at 10:00, 5 cm from the nipple, a lthough there are benign sonographic characteristics. Six-month follow-up ultra sound recommended. BI-RADS CATEGORY 3-PROBABLY BENIGN FINDING RECOMMENDATION: 6 month follow up recommended.
== END 2024-11-15 08:35 | disposition home or self-care (01) ==
LOC: MICIMG 08:35
PROVIDERS: PCP Obstetrics & Gynecology; Visit Provider Family Medicine Adolescent Medicine
DX: R92.8 Other abnormal and inconclusive findings on diagnostic imaging of breast (principal)
CPT/HCPCS: 76642

== ENCOUNTER 2025-03-16 00:53 | Day surgery (SDC) | payer OTHER, MEDICARE, SELFPAY ==
[2025-03-03 09:05] VITALS: BMI 22.4
[2025-03-16 06:24] VITALS: BP 109/61; PULSE 81; RESP 16; TEMP 36.4; O2SAT 100; BMI 22.6
[2025-03-16] MEDS: LACTATED RINGERS 1,000 ML 150 ML IV CONT (06:35)
--- NOTE | 2025-03-16 07:25 | P.PNAN_ITS ---
Anes - Initial Pre Proc Eval Procedure: Operation Date: 03/16/25 07:30 Proposed Procedures p Screening Colonoscopy - Dave Herrera MD Date/Time: 03/16/25 07:25 Surgeon: Dave Herrera MD Pre Op Diagnosis: Encounter for screening for malignant neoplasm of Patient Data Age: 59 Gender: F Height: 1.68 m Weight: 63.5 kg Last Vital Signs Temp 97.5 F L 03/16/25 06:24 Pulse 81 03/16/25 06:24 Resp 16 03/16/25 06:24 BP 109/61 03/16/25 06:24 Pulse Ox 100 03/16/25 06:24 O2 Del Method Room Air 03/16/25 06:24 Allergies Allergy/AdvReac Type Severity Reaction Status Date / Time tetanus toxoid, adsorbed Allergy Severe ???TOLD Verified 03/03/25 09:03 NEVER TO RECEIVE Penicillins Allergy Unknown RASH Verified 03/03/25 09:03 morphine AdvReac Mild STATES Verified 03/03/25 09:03 DOES NOT GIVE ANY RELIEF---MAKES HER CRAZY Home Medications ?Medication ?Instructions ?Recorded ?Confirmed ?Type ipratropium 0.5 mg-albuterol 3 mg 3 ml inhalation Q4H PRN shortness 06/30/21 03/03/25 Rx (2.5 mg base)/3 mL nebulization of breath or wheezing #90 mL soln albuterol sulfate 90 mcg/actuation 1 puff inhalation Q 4H PRN 11/03/22 03/03/25 Rx aerosol inhaler shortness of breath or wheez ing #27.5 grams fluticasone propionate 50 2 spray intranasal DAILY #48 grams 11/03/22 03/03/25 Rx mcg/actuation nasal spray,suspension ondansetron 4 mg disintegrating 4 mg PO Q8H PRN nausea and 03/15/24 03/03/25 Rx tablet vomiting #20 tabs mometasone-formoterol HFA 200 See Rx Instructions .Rou te 07/03/24 03/16/25 Rx mcg-5 mcg/actuation aerosol .COMPLEX #39 grams inhaler (Dulera) lisinopril 20 1 tablet PO DAILY #90 tabs 0 02/09/25 03/16/25 Rx mg-hydrochlorothiazide 12.5 mg tablet aspirin 81 mg chewable tablet 81 mg PO DAILY 03/03/25 03/16/25 History (Aspirin Childrens) zolpidem 10 mg tablet 10 mg PO QHS PRN sleep #30 t abs 03/07/25 03/16/25 Rx Patient hx anesthesia problems: none Family hx anesthesia problems: none Results Review: All pre-operative results and documents have been reviewed as part of the pre- operative evaluation. [facility] Past Medical History Medical History (Updated 03/16/25 @ 07:26 by Terrell Marcus Jr., CRNA) Chronic low back pain Asthma Pure hypercholesterolemia, unspecified Hypertension FH: cholecystectomy Pulmonary embolism History of COVID-19 Surgical History Surgical History (Updated 03/15/25 @ 13:48 by Panda Cotto, ) History of tonsillectomy History of cholecystectomy (10/2022) History of left hemicolectomy (2003) History of laparoscopy History of partial hysterectomy (2006) Family History Family History Son Asthma Father Depression Social History Social History Smoking status: Never smoker Second hand tobacco smoke exposure: No Alcohol intake: current Alcohol use details: Socially Substance use: never Substance use type: does not use Living arrangements: with family Occupation/Education: other Gender identity (if verbalized by the patient): Female Sexual Orientation (if Verbalized by the Patient): Straight or Heterosexual Spiritual care concerns: No Agree to blood products: Yes Anes - Eval Final PreProcedure Day of Procedure 03/16/25 07:25 Patient weight: normal Heart: regular rate and rhythm Lungs: clear to auscultation Airway: Mallampati scale class II Neurological: alert and oriented Last oral intake: >/= 8 hours ASA classification: II Emergent: no Anesthetic plan: proceed Anesthesia type and monitoring: general GIVS Results Review: All pre-operative results and documents have been reviewed as part of the pre- operative evaluation. Informed Consent: The patient's anesthetic plan and its attendant risks and benefits were discussed with the patient/family/POA. Questions were solicited and answers provided to the satisfaction of the patient/family/POA.
--- NOTE | 2025-03-16 07:33 | P.HP_ITS ---
H&P: HPI History of Present Illness Date/Time: 03/16/25 07:33 Chief Complaint: History of colon polyps Narrative: The patient has a history of colonic polyps, the last colonoscopy was 3 years ago. The patient underwent a partial colonic resection more than 20 years ago for an apparent episode of small-bowel obstruction. Review of Systems Review of Systems: All systems reviewed & are unremarkable except as noted in HPI and below PMFSH Past Medical History Medical History (Updated 03/16/25 @ 07:34 by Dave Herrera MD) Chronic low back pain Asthma Pure hypercholesterolemia, unspecified Hypertension FH: cholecystectomy Pulmonary embolism History of COVID-19 Surgical History Surgical History (Updated 03/15/25 @ 13:48 by Panda Cotto DO) History of tonsillectomy History of cholecystectomy (10/2022) History of left hemicolectomy (2003) History of laparoscopy History of partial hysterectomy (2006) Family History Family History Son Asthma Father Depression Social History Social History Smoking status: Never smoker Second hand tobacco smoke exposure: No Alcohol intake: current Alcohol use details: Socially Substance use: never Substance use type: does not use Living arrangements: with family Occupation/Education: other Gender identity (if verbalized by the patient): Female Sexual Orientation (if Verbalized by the Patient): Straight or Heterosexual Spiritual care concerns: No Agree to blood products: Yes Meds Home Medications and Allergies Home Medications ?Medication ?Instructions ?Recorded ?Confirmed ?Type ipratropium 0.5 mg-albuterol 3 mg 3 ml inhalation Q4H PRN shortness 06/30/21 03/03/25 Rx (2.5 mg base)/3 mL nebulization of breath or wheezing #90 mL soln albuterol sulfate 90 mcg/actuation 1 puff inhalation Q 4H PRN 11/03/22 03/03/25 Rx aerosol inhaler shortness of breath or wheez ing #27.5 grams fluticasone propionate 50 2 spray intranasal DAILY #48 grams 11/03/22 03/03/25 Rx mcg/actuation nasal spray,suspension ondansetron 4 mg disintegrating 4 mg PO Q8H PRN nausea and 03/15/24 03/03/25 Rx tablet vomiting #20 tabs mometasone-formoterol HFA 200 See Rx Instructions .Rou te 07/03/24 03/16/25 Rx mcg-5 mcg/actuation aerosol .COMPLEX #39 grams inhaler (Dulera) lisinopril 20 1 tablet PO DAILY #90 tabs 0 02/09/25 03/16/25 Rx mg-hydrochlorothiazide 12.5 mg tablet aspirin 81 mg chewable tablet 81 mg PO DAILY 03/03/25 03/16/25 History (Aspirin Childrens) zolpidem 10 mg tablet 10 mg PO QHS PRN sleep #30 t abs 03/07/25 03/16/25 Rx Allergies Allergy/AdvReac Type Severity Reaction Status Date / Time tetanus toxoid, adsorbed Allergy Severe ???TOLD Verified 03/03/25 09:03 NEVER TO RECEIVE Penicillins Allergy Unknown RASH Verified 03/03/25 09:03 morphine AdvReac Mild STATES Verified 03/03/25 09:03 DOES NOT GIVE ANY RELIEF---MAKES HER CRAZY Vital Signs Vital Signs - 24 hr 03/16/25 06:24 Temperature 97.5 F L Pulse Rate 81 Respiratory Rate 16 Blood Pressure 109/61 Pulse Oximetry 100 Oxygen Delivery Room Air Exam Const: General: cooperative and healthy appearing Resp: Effort & Inspection: normal respiratory effort and able to speak in complete sentences Auscultation: clear to auscultation bilaterally Cardio: Rate: regular rate Rhythm: regular rhythm GI: Inspection: normal to inspection GI Palp: No No hepatosplenomegaly present Auscultation: normal bowel sounds Rectal Exam: deferred Skin: General skin exam: normal color Psych: Appearance: grossly normal Mental Status: mental status grossly normal Assessment and Plan Assessment and plan (1) History of colonic polyps: Code(s): Z86.0100 - Personal history of colon polyps, unspecified Status: Acute Assessment and Plan: The patient is deemed a good candidate for the procedure. Consent signed. Will proceed.
--- NOTE | 2025-03-16 07:56 | S_PTH ---
PATIENT: Santa Harden LOC: [facility] U#:[id number] AGE/SX: 59/F ROOM: RE03/16/[address]: Dave Herrera MD : [id number] BED: DIS: 03/16/2025 SPEC #: [id number] RECD: 03/16/25 08:41 STATUS: RAY REQ #: [id number] TATI: 03/16/25 07:[address]: Dave Herrera DEPT: [facility] Surgical RECD BY: Heather Wilkinson ENTERED: 03/16/25 08:42 SP TYPE: Surgical OTHR DR: Kim Menard, BRAD Tissues: A - Colon Polypectomy Procedures: Hematoxylin and Eosin Stain Gross and Microscopic Level 4
[2025-03-16 08:00] VITALS: BP 88/56; PULSE 71; RESP 18; O2SAT 100
[2025-03-16 08:10] VITALS: BP 111/77; PULSE 69; RESP 15; O2SAT 100
[2025-03-16 08:20] VITALS: BP 118/73; PULSE 72; RESP 21; O2SAT 100
== END 2025-03-16 08:26 | disposition home or self-care (01) ==
PROVIDERS: PCP Nurse Practitioner Family; Referring Provider Family Medicine Adolescent Medicine; Visit Provider Internal Medicine Gastroenterology
PROC: 0DJD8ZZ Inspection of Lower Intestinal Tract, Via Natural or Artificial Opening Endoscopic (ICD-10-PCS; CPT 45378; principal; 2025-03-16 07:30)
DX: Z12.11 Encounter for screening for malignant neoplasm of colon (principal); D12.0 Benign neoplasm of cecum; K63.5 Polyp of colon; I10 Essential (primary) hypertension; J45.909 Unspecified asthma, uncomplicated; E78.00 Pure hypercholesterolemia, unspecified; G89.29 Other chronic pain; M54.50 Low back pain, unspecified; Z79.51 Long term (current) use of inhaled steroids; Z79.82 Long term (current) use of aspirin; Z98.890 Other specified postprocedural states; Z98.0 Intestinal bypass and anastomosis status; Z90.49 Acquired absence of other specified parts of digestive tract; Z86.711 Personal history of pulmonary embolism
CPT/HCPCS: 45385; 88305; J2003; J2704; J7120

== ENCOUNTER 2025-05-01 14:18 | Emergency (ER) | payer OTHER, MEDICARE, SELFPAY ==
--- OUTSIDE RECORDS SUMMARY | 2020-08-02 05:00 | XMS_ITS | Continuity of Care Document ---
Author Organization [facility] Address [address] [place] [address] [address] [place] [address] Phone Care Team Providers Care Oceanology Teacher Name Role Phone Juan Gilbert Unavailable Unavailable Procedures Procedure Date Therapeutic Exercise Manual Therapy Hot or Cold Pack Neuromuscular Re-Ed Therapeutic Activities Neuromuscular Re-Ed Therapeutic Exercise Hot or Cold Pack Manual Therapy Therapeutic Exercise Hot or Cold Pack Manual Therapy Neuromuscular Re-Ed Neuromuscular Re-Ed Hot or Cold Pack Therapeutic Exercise Manual Therapy Therapeutic Activities Therapeutic Exercise Neuromuscular Re-Ed Manual Therapy Hot or Cold Pack PT Evaluation Moderate Complexity Manual Therapy Therapeutic Exercise Neuromuscular Re-Ed Advance Directives Directive Yes / No Effective Date File Name No Information Encounters Encounter Description Practice Location Reason(s) For Visit Diagnoses Date Provider Providers Copied on Encounter [facility] [address] [place] [address] [address], [place], [place], [id number], tel:[phone] [place] No Information 1 Muehl Juan. [address] [place] [address], [address], [place], [place], [facility], . tel: [phone] [address], [place], [place], [id number], tel: [phone] [place] No Information 1 Muehl Juan. [address] [place] [address], [address], [place], [place], [facility], [place]. tel: [phone] [address], [place], [place], [id number], tel:[phone] [place] No Information 1 Muehl Juan. [address] [place] [address], [address], [place], [place], [facility], . tel: [phone] [address], [place], [place], [id number], tel:[phone] [place] No Information 1 Muehl Juan. [address] [place] [address], [address], [place], [place], [facility], . tel: [phone] [address], [place], [place], [id number], tel:[phone] [place] No Information 1 Muehl Juan. [address] [place] [address], [address], [place], [place], [facility], [place]. tel: [phone] [address], [place], [place], [id number], tel:[phone] [place] No Information b0 1 Muehl Juan. [address] [place] [address], [address], [place], [place], [facility], [place]. tel: [phone] Family History Family Member Type Diagnosis Age At Onset No Information Payers Payer name Insurance type Covered constitution party ID Mary Kate camejo(s) [facility] [id number] Social History Type Description Quantity Date Captured Comments Sex Female Smoking Status No Information Chief Complaint And Reason For Visit No Information Reason For Referral Reason For Referral No Information History Of Present Illness Encounter Date Complaint History Of Prese nt Illness No Information Functional Status Date Functional Assessmen t No Information Instructions Date Instruction Additional Infor mation No Information Assessments Type Assessment Date No Information Patient Care Teams Name Effective Dates (start - stop) Status Members No Information
--- NOTE | ~2025-05-01 | CT_ITS ---
EXAMINATION: CTA chest PE protocol, 05/01/2025 16:37 WATER METER MECHANIC HISTORY: sob, hx PE COMPARISON: No comparisons available. TECHNIQUE: CTA examination is obtained with contrast CTA examination technique is performed with arterial phase of contrast-enhancement. 3-D reconstruction with thin MIP axial and MPR coronal imaging is provided Isovue 300, 92cc injected IV. One or more of the following dose reduction techniques were used: automated exposure control, adjustment of the mA and/or kV according to patient size, use of iterative reconstruction technique. FINDINGS: No significant coronary calcification is present ([id number]) LUNGS: The contrast bolus is adequate, there is no pulmonary embolism identified. No tracheomalacia. Mild bronchiectasis. No mucous plugging. Mild emphysematous changes. Mild pulmonary fibrotic changes. No significant honeycombing or areas of bullous formation noted. Within the right lung apex there is a nodular density measuring 1.1 x 1 cm. Apical scarring is noted bilaterally. HEART AND PERICARDIUM: Mild cardiomegaly. AORTA: Normal caliber aorta.. PULMONARY ARTERIES: No pulmonary embolism ADENOPATHY/MEDIASTINUM: None. LIMITED VIEWS OF THE ABDOMEN: Very large hiatal hernia, artifact limits evaluation. Partially imaged large probable left renal cyst 7 x 8 cm, artifact limits evaluation, outpatient renal ultrasound recommended. OSSEOUS STRUCTURES: Postsurgical changes noted with fusion of the thoracic spine. No sclerotic or lytic lesions. No acute fractures. OVERLYING SOFT TISSUES: Unremarkable. THYROID: The thyroid is unremarkable. IMPRESSION: 1. Negative for pulmonary embolism. No acute process in the chest. 2. Nodular density in the right lung apex incompletely characterized. This may represent an area of apical pleural scarring however neoplasm is not excluded. This area appears more prominent compared to previous CT 04/07/2022. PET CT is recommended to assess Reviewed, dictated and finalized at location P. R METER MECHANIC
[2025-05-01 14:20] VITALS: BP 117/72; PULSE 83; RESP 17; TEMP 36.6; O2SAT 100
--- NOTE | 2025-05-01 15:19 | ED_ITS ---
HPI - SOB/Dyspnea General Chief Complaint: Shortness of Breath/Dyspnea <Giana Jackson PA-C - Last Filed: 05/02/25 09:16> Stated Complaint: R/o PE <Giana Jackson PA-C - Last Filed: 05/02/25 09:16> Time Seen by Provider: 05/01/25 15:19 <Giana Jackson PA-C - Last Filed: 05/02/25 09:16> Focused HPI: This is a 60 year old female that presents to the ER for shortness of breath. Ongoing over the last week. Worse with exertion. Reports lightheadedness, blurry vision. Reports history of PE. She is not currently on anticoagulation. GENERAL: Well-appearing, well-nourished, and in no acute distress. HEAD: Normocephalic, atraumatic. CHEST: Clear to auscultation. ?No respiratory distress. HEART: Regular rate and rhythm.? NEURO: ?Alert and oriented x3. Patient screened in triage and initial orders placed.? ?Additional care and disposition to be based upon?diagnostic testing and treatment. <Giana Jackson PA-C - Last Filed: 05/02/25 09:16> History of Present Illness HPI Narrative: Patient is a [age]-year-old female who presents ER shortness of breath over last week. Who home from [place] couple weeks ago. History of PE. Not anticoagulated. Has been having leg cramping. Also reports history of anemia but no longer takes her iron. He reports exertional dyspnea to the point that she can walk 20 yd before she has to sit and catch her breath. This has become burn some she is having difficulty hunting with her . No chest pain. No productive cough/fever/chills. <Smooth Espinoza MD - Last Filed: 05/01/25 20:18> Related Data Home Medications: Home Medications ?Medication ?Instructions ?Recorded ?Confirmed ?Last Taken ?Type aspirin 81 mg chewable tablet 81 mg PO DAILY 03/03/25 05/01/25 03/15/25 History (Aspirin Childrens) <Giana Jackson PA-C - Last Filed: 05/02/25 09:16> Allergies/Adverse Reactions: Allergies Allergy/AdvReac Type Severity Reaction Status Date / Time tetanus toxoid, adsorbed Allergy Severe ???TOLD Verified 05/01/25 13:32 NEVER TO RECEIVE Penicillins Allergy Unknown RASH Verified 05/01/25 13:32 morphine AdvReac Mild STATES Verified 05/01/25 13:32 DOES NOT GIVE ANY RELIEF---MAKES HER CRAZY <Giana Jackson PA-C - Last Filed: 05/02/25 09:16> Review of Systems 2 Review of Systems: All systems reviewed & are unremarkable except as noted in HPI and below <Smooth Espinoza MD - Last Filed: 05/01/25 20:18> Constitutional: Constitutional: Reports no additional constitutional complaints <Smooth Espinoza MD - Last Filed: 05/01/25 20:18> Cardiovascular: Cardiovascular: Reports no additional cardiovascular complaints <Smooth Espinoza MD - Last Filed: 05/01/25 20:18> Respiratory: Respiratory: Reports no additional respiratory complaints < Smooth Espinoza MD - Last Filed: 05/01/25 20:18> Gastrointestinal: Gastrointestinal: Reports no additional gastrointestinal complaints <Smooth Espinoza MD - Last Filed: 05/01/25 20:18> [facility] Past Medical History Medical History: Medical History (Updated 05/02/25 @ 09:16 by Giana Jackson PA-C) Chronic low back pain Asthma Pure hypercholesterolemia, unspecified Hypertension FH: cholecystectomy Pulmonary embolism History of COVID-19 <Giana Jackson PA-C - Last Filed: 05/02/25 09:16> Surgical History Surgical History: Surgical History (Updated 03/15/25 @ 13:48 by Panda Cotto, ) History of tonsillectomy History of cholecystectomy (10/2022) History of left hemicolectomy (2003) History of laparoscopy History of partial hysterectomy (2006) <Giana Jackson PA-C - Last Filed: 05/02/25 09:16> Family History Family History: Family History Son Asthma Father Depression <Giana Jackson PA-C - Last Filed: 05/02/25 09:16> Social History Social History: Social History Smoking status: Never smoker Second hand tobacco smoke exposure: No Alcohol intake: current Drinks per week: 1 Alcohol use details: Socially Substance use: never Substance use type: does not use Living arrangements: with family Additional living arrangements comments: with sp Occupation/Education: other Gender identity (if verbalized by the patient): Female Sexual Orientation (if Verbalized by the Patient): Straight or Heterosexual Spiritual care concerns: No Agree to blood products: Yes <Giana Jackson PA-C - Last Filed: 05/02/25 09:16> Exam 2 Narrative: GENERAL: Well-appearing, well-nourished, and in no acute distress. HEAD: Normocephalic, atraumatic. ENT: Mucous membranes moist. NECK: Supple. CHEST: Clear to auscultation. No respiratory distress. HEART: Regular rate and rhythm. Normal peripheral pulses. ABDOMEN: Soft, nontender, nondistended. EXTREMITIES: Normal range of motion. No edema. SKIN: Warm, dry, no rash. NEURO: Alert and oriented x3. PSYCH: Normal mood and affect. <Smooth Espinoza MD - Last Filed: 05/01/25 20:18> Course Course Emergency Course: Normal blood work. Imaging without PE. Discussed abnormal nodule in his follow-up PET scan. Patient very concerned about her dyspnea on exertion which is new in abnormal for her. No hypoxia on exertion here. Will discuss the hospitalist about admission for stress test. 2015: Patient called out from her room. After additional discussion she has side she would like to go home and follow-up with her PCP and schedule an outpatient stress test. She will start iron for her anemia. <Smooth Espinoza MD - Last Filed: 05/01/25 20:18> Vital Signs Vital signs: Vital Signs Temperature 97.8 F 05/01/25 14:20 Pulse Rate 83 05/01/25 14:20 Respiratory Rate 17 05/01/25 14:20 Blood Pressure 117/72 05/01/25 14:20 Pulse Oximetry 100 05/01/25 14:20 Oxygen Delivery Room Air 05/01/25 14:20 Temperature 97.8 F 05/01/25 14:20 Pulse Rate 78 05/01/25 20:27 Respiratory Rate 16 05/01/25 20:27 Blood Pressure 129/89 05/01/25 20:27 Pulse Oximetry 100 05/01/25 20:27 Oxygen Delivery Room Air 05/01/25 17:09 <Giana Jackson PA-C - Last Filed: 05/02/25 09:16> Vital Signs Temperature 97.8 F 05/01/25 14:20 Pulse Rate 83 05/01/25 14:20 Respiratory Rate 17 05/01/25 14:20 Blood Pressure 117/72 05/01/25 14:20 Pulse Oximetry 100 05/01/25 14:20 Oxygen Delivery Room Air 05/01/25 14:20 Temperature 97.8 F 05/01/25 14:20 Pulse Rate 78 05/01/25 20:27 Respiratory Rate 16 05/01/25 20:27 Blood Pressure 129/89 05/01/25 20:27 Pulse Oximetry 100 05/01/25 20:27 Oxygen Delivery Room Air 05/01/25 17:09 <Smooth Espinoza MD - Last Filed: 05/01/25 20:18> MDM - SOB/Dyspnea Lab Data Result diagrams: 05/01/25 15:39 05/01/25 15:39 <Giana Jackson PA-C - Last Filed: 05/02/25 09:16> Labs: Lab Results 05/01/25 Range/Units 15:39 WBC 6.1 (4.5-10.0) K/mm3 RBC 3.62 L (4.2-5.4) M/mm3 Hgb 9.4 L (12.0-15.0) g/dL Hct 30.5 L (37.0-47.0) % MCV 84.3 (80-100) fl MCH 26.0 (26-34) pg MCHC 30.8 L (32-36) g/dl RDW 14.3 (11.5-14.5) % Plt Count 442 H (150-375) k/mm3 MPV 8.9 (7.4-10.4) fl Immature Gran % (Auto) 0.3 (0-0.5) % Neut % (Auto) 56.1 (45.5-73.1) % Lymph % (Auto) 30.4 (18.3-44.2) % [place] % (Auto) 9.3 H (2.6-8.5) % Eos % (Auto) 2.3 (0-4.4) % Baso % (Auto) 1.6 H (0.2-1.2) % Lymph # (Auto) 1.86 (0.9-3.2) K/mm3 [place] # (Auto) 0.6 (0.1-0.6) K/mm3 Eos # (Auto) 0.1 (0-0.3) K/mm3 Baso # (Auto) 0.1 (0.0-0.1) K/mm3 Abs Immat Gran (auto) 0.02 (0.00-0.031) K/mm3 Absolute Neuts (auto) 3.4 (1.3-6.7) K/mm3 Absolute Nucleated RBC 0.000 (0.0-0.012) K/mm3 Nucleated RBC % 0.0 (0.0-0.2) % PT 12.5 (11.1-14.7) Seconds INR 0.9 APTT 22.3 (22.3-36.8) Seconds Sodium 137 (137-145) mmol/L Potassium 3.7 (3.4-5.0) mmol/L Chloride 105 (98-107) mmol/L Carbon Dioxide 23 (22-30) mmol/L Anion Gap 9 (4-12) mmol/L BUN 16 (7-17) mg/dL Creatinine 0.73 (0.7-1.0) mg/dL Estim Creat Clear Calc 68 ml/min Estimated GFR > 60 (59 - ) Glucose 87 (65-110) mg/dL Calcium 9.4 (8.4-10.2) mg/dL Total Bilirubin 0.5 (0.2-1.3) mg/dL AST 38 H (14-36) U/L ALT 29 (6-35) U/L Alkaline Phosphatase 79 (38-126) U/L Troponin I < 0.012 (0.000-0.034) ng/mL NT-Pro-B Natriuret Pep 50 (19.9-100) pg/mL Total Protein 7.8 (6.3-8.2) g/dL Albumin 4.8 (3.5-5.1) g/dL Lipase 182 (23-300) U/L <Giana L. Jackson, PA-C - Last Filed: 05/02/25 09:16> Lab Results 05/01/25 Range/Units 15:39 WBC 6.1 (4.5-10.0) K/mm3 RBC 3.62 L (4.2-5.4) M/mm3 Hgb 9.4 L (12.0-15.0) g/dL Hct 30.5 L (37.0-47.0) % MCV 84.3 (80-100) fl MCH 26.0 (26-34) pg MCHC 30.8 L (32-36) g/dl RDW 14.3 (11.5-14.5) % Plt Count 442 H (150-375) k/mm3 MPV 8.9 (7.4-10.4) fl Immature Gran % (Auto) 0.3 (0-0.5) % Neut % (Auto) 56.1 (45.5-73.1) % Lymph % (Auto) 30.4 (18.3-44.2) % [place] % (Auto) 9.3 H (2.6-8.5) % Eos % (Auto) 2.3 (0-4.4) % Baso % (Auto) 1.6 H (0.2-1.2) % Lymph # (Auto) 1.86 (0.9-3.2) K/mm3 [place] # (Auto) 0.6 (0.1-0.6) K/mm3 Eos # (Auto) 0.1 (0-0.3) K/mm3 Baso # (Auto) 0.1 (0.0-0.1) K/mm3 Abs Immat Gran (auto) 0.02 (0.00-0.031) K/mm3 Absolute Neuts (auto) 3.4 (1.3-6.7) K/mm3 Absolute Nucleated RBC 0.000 (0.0-0.012) K/mm3 Nucleated RBC % 0.0 (0.0-0.2) % PT 12.5 (11.1-14.7) Seconds INR 0.9 APTT 22.3 (22.3-36.8) Seconds Sodium 137 (137-145) mmol/L Potassium 3.7 (3.4-5.0) mmol/L Chloride 105 (98-107) mmol/L Carbon Dioxide 23 (22-30) mmol/L Anion Gap 9 (4-12) mmol/L BUN 16 (7-17) mg/dL Creatinine 0.73 (0.7-1.0) mg/dL Estim Creat Clear Calc 68 ml/min Estimated GFR > 60 (59 - ) Glucose 87 (65-110) mg/dL Calcium 9.4 (8.4-10.2) mg/dL Total Bilirubin 0.5 (0.2-1.3) mg/dL AST 38 H (14-36) U/L ALT 29 (6-35) U/L Alkaline Phosphatase 79 (38-126) U/L Troponin I < 0.012 (0.000-0.034) ng/mL NT-Pro-B Natriuret Pep 50 (19.9-100) pg/mL Total Protein 7.8 (6.3-8.2) g/dL Albumin 4.8 (3.5-5.1) g/dL Lipase 182 (23-300) U/L <Smooth Espinoza MD - Last Filed: 05/01/25 20:18> Imaging Data Radiologist's impression: ITS Impressions Chest CTA 05/01/25 17:21 IMPRESSION: 1. Negative for pulmonary embolism. No acute process in the chest. 2. Nodular density in the right lung apex incompletely characterized. This may represent an area of apical pleural scarring however neoplasm is not excluded. This area appears more prominent compared to previous CT 04/07/2022. PET CT is recommended to assess <Smooth Espinoza MD - Last Filed: 05/01/25 20:18> ECG Data EKG #1: ECG completion date: 05/01/25 <Smooth Espinoza MD - Last Filed: 05/01/25 20:18> ECG completion time: 15:37 <Smooth Espinoza MD - Last Filed: 05/01/25 20:18> EKG Interpretation: normal rate (78), sinus rhythm, normal QRS, RBBB (Incomplete) and other (T-wave inversions V1/2.) <Smooth Espinoza MD - Last Filed: 05/01/25 20:18> Discharge Plan Discharge Clinical Impression: Dyspnea on exertion Anemia Qualifiers: Anemia type: unspecified type Qualified Code(s): D64.9 - Anemia, unspecified <Giana Jackson PA-C - Last Filed: 05/02/25 09:16> Patient Disposition: Home <JAS Borrego Last Filed: 05/02/25 09:16> Condition: Stable <JAS Borrego Last Filed: 05/02/25 09:16> Instructions: Dyspnea (ED) <JAS Borrego Last Filed: 05/02/25 09:16> Additional Instructions: Please return to the emergency department if you develop severe and persistent chest pain, difficulty breathing, dizziness, leg swelling or if you are coughing up blood as these can be signs of a medical emergency. Please call your doctor for a follow up appointment to determine the need for further testing. Discuss with your PCP the possibility getting a stress test for your dyspnea. Start iron for your anemia. <Giana Jackson PA-C - Last Filed: 05/02/25 09:16> Patient Language: Georgian <JAS Borrego Last Filed: 05/02/25 09:16> Prescriptions: New ferrous sulfate 324 mg (65 mg iron) tablet,delayed release (DR/EC) 324 mg PO DAILY Qty: 14 0RF No Action aspirin [Aspirin Childrens] 81 mg tablet,chewable 81 mg PO DAILY albuterol sulfate 90 mcg/actuation HFA aerosol inhaler 1 puff inhalation Q4H PRN (Reason: shortness of breath or wheezing) Qty: 27.5 3RF Rx Instructions: 90 day supply fluticasone propionate 50 mcg/actuation spray,suspension 2 spray intranasal DAILY Qty: 48 3RF Rx Instructions: administer into each nostril ondansetron 4 mg tablet,disintegrating 4 mg PO Q8H PRN (Reason: nausea and vomiting) Qty: 20 0RF lisinopril-hydrochlorothiazide 20-12.5 mg tablet 1 tablet PO DAILY Qty: 90 1RF zolpidem 10 mg tablet 10 mg PO QHS PRN (Reason: sleep) Qty: 30 5RF budesonide-formoterol 160-4.5 mcg/actuation HFA aerosol inhaler 2 puff inhalation Q12H Qty: 30.6 0RF <Giana Jackson PA-C - Last Filed: 05/02/25 09:16> Follow-up/Referrals: Kim Menard, STEEPLE JACK [Primary Care Provider, [facility]] - 1 Week <Giana Jackson PA-C - Last Filed: 05/02/25 09:16>
--- NOTE | 2025-05-01 15:20 | ECG_ITS ---
Test Date: 2025-05-01 15:37:23 Measurements Intervals [place] Rate: 78 P: 62 MO: 178 QRS: 51 QRSD: 86 T: 52 QT: 373 QTc: 427 Interpretive Statements SINUS RHYTHM POSSIBLE RIGHT VENTRICULAR CONDUCTION DELAY Electronically Signed On 05-02-2025 05:50:22 RESIDENTIAL BUILDING INSPECTOR by Honorio Selby D.O
[2025-05-01 15:49] LABS: Hematocrit 30.5 % (37.0-47.0); Hemoglobin 9.4 g/dL (12.0-15.0); Immature Granulocyte Percent A 0.3 % (0-0.5); Lymphocytes Absolute Auto 1.86 K/mm3 (0.9-3.2); Mean Corpuscular HGB Conc 30.8 g/dl (32-36); Mean Corpuscular Hemoglobin 26.0 pg (26-34); Mean Corpuscular Volume 84.3 fl (80-100); Nucleated Red Blood Cells Absolute Auto 0.000 K/mm3 (0.0-0.012); Nucleated Red Blood Cells Perc 0.0 % (0.0-0.2); Platelet Count Result 442 k/mm3 (150-375); Red Blood Count 3.62 M/mm3 (4.2-5.4); White Blood Count 6.1 K/mm3 (4.5-10.0)
[2025-05-01 16:02] LABS: Alanine Aminotransferase 29 U/L (6-35); Albumin Level 4.8 g/dL (3.5-5.1); Alkaline Phosphatase 79 U/L (38-126); Anion Gap 9 mmol/L (4-12); Aspartate Amino Transferase 38 U/L (14-36); Bilirubin,Total 0.5 mg/dL (0.2-1.3); Blood Urea Nitrogen 16 mg/dL (7-17); Calcium 9.4 mg/dL (8.4-10.2); Carbon Dioxide 23 mmol/L (22-30); Chloride 105 mmol/L (98-107); Estimated CRCL calculation 68 ml/min; Estimated Glomerular Filt Rate > 60; Glucose 87 mg/dL (65-110); INR 0.9; Lipase 182 U/L (23-300); Partial Thromboplastin Time 22.3 Seconds (22.3-36.8); Potassium 3.7 mmol/L (3.4-5.0); Prothrombin Time 12.5 Seconds (11.1-14.7); Sodium 137 mmol/L (137-145); Total Protein 7.8 g/dL (6.3-8.2)
[2025-05-01 16:14] LABS: NT Pro B Type Natriuretic Pept 50 pg/mL (19.9-100); Troponin I < 0.012 ng/mL (0.000-0.034)
--- OUTSIDE RECORDS SUMMARY | 2025-05-01 16:57 | XMS_ITS | Clinical Summary ---
Author Organization [facility] Address [facility] [place] [address] Care Team Providers Care Clinical Dermatologist Name Role Phone Jon Landin MD Primary Care Provider [phone]- [phone] Allergies Active Allergy Reactions Criticality Noted Date Comments Penicillins Unknown 01/19/2020 Tetanus Toxoid-Containing Vaccines Unknown 0 01/19/2020 Medications zolpidem 10 MG tablet 12/23/2019 [...] 2:14 PM CDT Height 167.6 cm (5' 6) 01/19/2020 2:14 PM CDT Body Mass Index 23.24 01/19/2020 2:14 PM CDT Plan of Treatment Health Maintenance Due Date Last Done Comments Annual Physical 1970 Hepatitis C 1985 DTaP, Tdap and Td Vaccines ( 1 - Tdap) 1986 Hepatitis B Vaccines (1 of 3 - 19+ 3-dose series) 1986 Mammogram Screening 2007 Pneumococcal Vaccine: 50+ Ye ars (1 of 1 - PCV) 2017 Zoster Vaccines (1 of 2) 2017 COVID-19 Vaccine (1 - 2024-2 6 season) 2025 Influenza Adult (#1) 2025 Colorectal Cancer Screening Colonoscopy (10 Years) 01/23/2030 01/24/2020 Hepatitis A Vaccines Aged Out No long er eligible based on patient's age to complete this topic Meningococcal B Vaccine Aged Out No l onger eligible based on patient's age to complete this topic Meningococcal Vaccine Aged Out No abdirizak rogelio eligible based on patient's age to complete this topic RSV Immunizations Under 20 Months Aged Out No longer eligible based on patient's age to complete this topic Medical Devices Implanted Type Area Installer Metal Flooring Device Identifier Shelf Expiration Date Model / Serial / Lot Dejuan Implanted:Qty: 2 Dejuan Back Screw Implanted:Qty: 26 Screw Back Insurance [facility] Care Teams Clinical Dermatologist Relationship Specialty Start Date End Date Jon Landin MD [address] [address] PCP - General FAMILY PRACTICE 01/24/20
--- OUTSIDE RECORDS SUMMARY | 2025-05-01 16:57 | XMS_ITS | Clinical Summary ---
Author Organization [facility] Address [address] [place] [address] Care Team Providers Care Dinkey Locomotive Operator Name Role Phone Jon Landin MD Primary Care Provider [phone]- [phone] Allergies Active Allergy Reactions Criticality Noted Date [...] 2 Active fluticasone propionate (FLONASE) 50 mcg/spray [place], Suspension nasal inhaler Administer 2 Sprays in [...] Encounters Date Type Department Care Team Description 04/25/2025 External Device Data [facility] ABSTRACTION Provider, Abstract 04/05/2025 External Device Data [facility] ABSTRACTION Provider, Abstract [...] Sign Reading Time Taken Comments Blood Pressure 108/78 09/07/2024 2:19 PM CDT Pulse 102 09/07/2024 2:19 PM CDT Temperature 34.4 C (94 F) 09/07/2024 2:19 PM CDT Respiratory Rate 16 09/07/2024 2:19 PM CDT Oxygen Saturation 97% 09/07/2024 2:19 PM CDT Inhaled Oxygen Concentration - - Weight 64.8 kg (142 lb 12.8 oz) 09/07/2024 2:19 PM CDT Height 167.6 cm (5' 6) 01/29/2022 1:33 PM CDT Body Mass Index 23.05 01/29/2022 1:33 PM CDT Plan of Treatment Upcoming Encounters Date Type Department Care Team (Late st Contact Info) Description 09/11/2025 10:00 AM CDT Office Visit [facility] Oncology and Hematology - [place] [place] [address] Alfonzo Tate MD [address] [facility] [address] [place] [address] Health Maintenance Due Date Last Done Comments DTAP/TDAP/TD VACCINES (1 - Tdap) 1986 HEPATITIS B VACCINES (1 of 3 - 19+ 3-dose series) 1986 COLORECTAL SCREENING 2012 Colorectal Cancer Screening 2012 FIT-DNA Q 3 years 2012 FIT/FOBT Q 1 year 2012 Flex Sig/CT Colonography Q 5 years 2012 ZOSTER VACCINE (1 of 2) 2017 INFLUENZA VACCINE (#1) 2025 03/29/2022 BREAST CANCER SCREENING 05/10/2025 05/10/2024, 05/10 Insurance MEDICARE PART A AND B [id number] Care Teams Dinkey Locomotive Operator Relationship Specialty Start Date End Date Jon Landin MD PCP - General Family Practice 07/16/22
--- OUTSIDE RECORDS SUMMARY | 2025-05-01 16:57 | XMS_ITS | Encounter Summary ---
Author Organization [facility] Address [address] [place] [address] Care Team Providers Care House Carpenter Name Role Phone Jon Landin MD Primary Care Provider [phone]- [phone] Encounter Details Date Type Department Care Team (Late st Contact Info) Description 01/21/2020 Prep for Procedure [facility] One Day Services [place], [place] [id number] Rivas Mark MD 3 [facility] [address] [place] [address] [phone] Social History Tobacco Use Types Packs/Day Years [...] DETECTED NOT DETECTED 01/22/2020 10:18 PM CDT [facility] Comment: A Not Detected (negative) test result [...] providers and patients using the following websites: https://www.[employer].[facility]/home/Covid-19/HCP/QuestIVD/fact- sheet.html https://www.[employer].[facility]/home/Covid-19/Patients/ Quest[employer]D/fact-sheet.html This test has been authorized by the FDA under an Emergency Use Authorization (EUA) for use by authorized laboratories. Due to the current public health emergency, [employer] is receiving a high volume of samples [...] about COVID-19 can be found at the [employer] website: www.[employer].[facility]/Covid19. Test performed at [facility] [address] [facility] [place] [address] Director: KAROLINE TROTTER DO,MPH NASOPHARYNGEAL SWAB / Unknown 01/21/2020 9:44 AM CDT Rivas Mark MD MICROBIOLOGY - GENERAL TRISH SANDOVAL Final Result [facility] [address] [place] [address], documented in this encounter Visit Diagnoses Diagnosis Encounter for screening colonoscopy- Primary Special screening for malignant neoplasms, colon documented in this encounter Additional Health Concerns Infection Onset Date Last Indicated Resolved Time COVID-19 Rule Out 01/21/2020 01/21/2020 01/22/2020 10:18 PM CDT documented as of this encounter Care Teams House Carpenter Relationship Specialty Start Date End Date Jon Landin MD [address] [address] PCP - General FAMILY PRACTICE 01/24/20 documented as of this encounter
--- OUTSIDE RECORDS SUMMARY | 2025-05-01 16:57 | XMS_ITS | Clinical Summary ---
Author Organization [facility] Address [address] [place] [address] Care Team Providers Care Keyboard Instrument Repairer Name Role Phone Simi Yun Primary Care Provider [phone] Allergies Active Allergy Reactions Criticality Noted Date Comments Penicillins Other (See comments) Reaction: TETANUS, , Tetanus Toxoid Surgical History Surgery Date Site/Laterality Comments EPIDURAL INJECTION LUMBOSACRAL 07/15/2013 N/A Social History Tobacco Use Types Packs/Day Years Used Date Smoking Tobacco: Never Assessed Comments Unknown Sex and Gender Information Value Date Recorded Sex Assigned at Not on file Legal Sex Female 3:03 PM BANKRUPTCY ATTORNEY Gender Identity Not on file Sexual Orientation Not on file Last Filed Vital Signs Vital Sign Reading Time Taken Comments Blood Pressure 107/73 02/17/2014 7:07 AM CDT Pulse 76 02/17/2014 8:47 AM CDT Temperature - - Respiratory Rate - - Oxygen Saturation - - Inhaled Oxygen Concentration - - Weight 63.4 kg (139 lb 12.4 oz) 02/16/2014 1:00 PM CDT Height 165.1 cm (5' 5) 02/16/2014 1:00 PM CDT Body Mass Index 23.26 02/16/2014 1:00 PM CDT Plan of Treatment Not on file Insurance [facility] H[facility]/PPO Address: [address] [address] [place] [address] MEDICARE Care Teams Keyboard Instrument Repairer Relationship Specialty Start Date End Date Simi Yun PA [address] [place] [address] PCP - General Physician Head Pastry Chef 05/06/22
[2025-05-01 17:09] VITALS: BP 118/85; PULSE 79; RESP 15; O2SAT 100
--- OUTSIDE RECORDS SUMMARY | 2025-05-01 18:41 | XMS_ITS | Encounter Summary ---
Author Organization [facility] Address [address] [place] [address] Care Team Providers Care Oil Pipeline Operator Name Role Phone Jon Landin MD Primary Care Provider [phone] Encounter Details Date Type Department Care Team (Late st Contact Info) Description 01/21/2020 Prep for Procedure [facility] One Day Services [place], [place] [address] Rivas Mark MD 3 [facility] Curt [address] [place] [phone] Social History Tobacco Use Types Packs/Day Years [...] DETECTED NOT DETECTED 01/22/2020 10:18 PM CDT [facility] Comment: A Not Detected [...] providers and patients using the following websites: https://www.[employer]/home/Covid-19/HCP/QuestIVD/fact- sheet.html https://www.[employer]/home/Covid-19/Patients/ Quest[employer]D/fact-sheet.html This test has been authorized by the FDA under an Emergency Use Authorization (EUA) for use by authorized laboratories. Due to the current public health emergency, [employer] is receiving a high volume of samples [...] about COVID-19 can be found at the [employer] website: www.[employer]/Covid19. Test performed at [facility] [address] [facility] [place] [address] Director: KAROLINE TROTTER DO,MPH NASOPHARYNGEAL SWAB / Unknown 01/21/2020 9:44 AM CDT Rivas Mark MD MICROBIOLOGY - GENERAL TRISH SANDOVAL Final Result [facility] [address] [place] [address], documented in this encounter Visit Diagnoses Diagnosis Encounter for screening colonoscopy- Primary Special screening for malignant neoplasms, colon documented in this encounter Additional Health Concerns Infection Onset Date Last Indicated Resolved Time COVID-19 Rule Out 01/21/2020 01/21/2020 01/22/2020 10:18 PM CDT documented as of this encounter Care Teams Oil Pipeline Operator Relationship Specialty Start Date End Date Jon Ladnin MD [address] [address] PCP - General FAMILY PRACTICE 01/24/20 documented as of this encounter
--- OUTSIDE RECORDS SUMMARY | 2025-05-01 18:41 | XMS_ITS | Clinical Summary ---
Author Organization [facility] Address [address] [place] [address] Care Team Providers Care Advertising Analyst Name Role Phone Jon Landin MD Primary Care Provider +1- [phone] Allergies Active Allergy Reactions Criticality Noted Date [...] 2 Active fluticasone propionate (FLONASE) 50 mcg/spray [place], Suspension nasal inhaler Administer 2 Sprays in [...] Description 09/11/2025 10:00 AM CDT Office Visit [facility] Oncology and Hematology - [place] [address] [place] [address] Alfonzo Tate MD [address] [facility] [address] [place] [address] Health Maintenance Due Date Last [...] 05/10 Insurance MEDICARE PART A AND B [id number] Care Teams Advertising Analyst Relationship Specialty Start Date End Date Jon Landin MD PCP - General Family Practice 07/16/22
--- OUTSIDE RECORDS SUMMARY | 2025-05-01 18:41 | XMS_ITS | Clinical Summary ---
Author Organization [facility] Address [facility] [place] [address] Care Team Providers Care Slot Floor Supervisor Name Role Phone Jon Landin MD Primary Care Provider [phone] Allergies Active Allergy Reactions Criticality Noted Date [...] this topic Medical Devices Implanted Type Area Crts Device Identifier Shelf Expiration Date Model / Serial / Lot Dejuan Implanted:Qty: 2 Dejuan Back Screw Implanted:Qty: 26 Screw Back Insurance [facility] Care Teams Slot Floor Supervisor Relationship Specialty Start Date End Date Jon Landin MD [address] [address] PCP - General FAMILY PRACTICE 01/24/20
--- OUTSIDE RECORDS SUMMARY | 2025-05-01 18:41 | XMS_ITS | Clinical Summary ---
Author Organization [facility] Address [address] [place] [address] Care Team Providers Care Glassware Maker Name Role Phone Simi Yun Primary Care Provider [phone] Allergies Active Allergy Reactions Criticality Noted Date Comments Penicillins Other (See comments) Reaction: TETANUS, , Tetanus Toxoid Surgical History Surgery Date Site/Laterality Comments EPIDURAL INJECTION LUMBOSACRAL 07/15/2013 N/A Social History Tobacco Use Types Packs/Day Years Used Date Smoking Tobacco: Never Assessed Comments Unknown Sex and Gender Information Value Date Recorded Sex Assigned at Not on file 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
[2025-05-01 20:27] VITALS: BP 129/89; PULSE 78; RESP 16; O2SAT 100
== END 2025-05-01 20:31 | disposition home or self-care (01) ==
PROVIDERS: Physician Assistant; Emergency Provider Emergency Medicine; PCP Nurse Practitioner Family
DX: R06.00 Dyspnea, unspecified (principal); D64.9 Anemia, unspecified; G89.29 Other chronic pain; J45.909 Unspecified asthma, uncomplicated; E78.5 Hyperlipidemia, unspecified; I10 Essential (primary) hypertension; Z86.711 Personal history of pulmonary embolism
CPT/HCPCS: 36415; 71275; 80053; 83690; 83880; 84484; 85025; 85610; 85730; 93005; 99284; Q9967

== ENCOUNTER 2025-05-02 10:15 | Outpatient (CLI) | payer OTHER, MEDICARE, SELFPAY ==
[2025-05-02 10:35] LABS: Hematocrit 28.6 % (37.0-47.0); Hemoglobin 9.0 g/dL (12.0-15.0); Immature Granulocyte Percent A 0.5 % (0-0.5); Lymphocytes Absolute Auto 1.36 K/mm3 (0.9-3.2); Mean Corpuscular HGB Conc 31.5 g/dl (32-36); Mean Corpuscular Hemoglobin 26.9 pg (26-34); Mean Corpuscular Volume 85.4 fl (80-100); Nucleated Red Blood Cells Absolute Auto 0.000 K/mm3 (0.0-0.012); Nucleated Red Blood Cells Perc 0.0 % (0.0-0.2); Platelet Count Result 377 k/mm3 (150-375); Red Blood Count 3.35 M/mm3 (4.2-5.4); White Blood Count 6.4 K/mm3 (4.5-10.0)
--- OUTSIDE RECORDS SUMMARY | 2025-05-02 11:31 | XMS_ITS | Clinical Summary ---
Author Organization [facility] Address [facility] [place] [address] Care Team Providers Care Finishing Frame Runner Name Role Phone Jon Landin MD Primary Care Provider [phone] Allergies Active Allergy Reactions Criticality Noted Date [...] this topic Medical Devices Implanted Type Area Aeronautical Design Engineer Device Identifier Shelf Expiration Date Model / Serial / Lot Dejuan Implanted:Qty: 2 Dejuan Back Screw Implanted:Qty: [address] [facility] Care Teams Finishing Frame Runner Relationship Specialty Start Date End Date Jon Landin MD [address] [address] PCP - General FAMILY PRACTICE 01/24/20
--- OUTSIDE RECORDS SUMMARY | 2025-05-02 11:31 | XMS_ITS | Clinical Summary ---
Author Organization [facility] Address [address] [facility] [address] Care Team Providers Care Supervisor Phosphorus Processing Name Role Phone Jon Landin MD Primary Care Provider [phone] Allergies Active Allergy Reactions Criticality Noted Date [...] 2 Active fluticasone propionate (FLONASE) 50 mcg/spray [place]ett, Suspension nasal inhaler Administer 2 Sprays in [...] Care Team (Late st Contact Info) Description 05/11/2025 4:30 PM CULLET CRUSHER Telephone Check Up [facility] Oncology and Hematology [address] [place] [address] Alfonzo Tate MD [address] [facility] [address] [place] [address] 09/11/2025 10:00 AM CDT Office Visit [facility] Oncology and Hematology - [place] [address] [facility] [address] [place] [address] Alfonzo Tate MD [address] [facility] [address] [place] [address] Health Maintenance Due Date Last Done Comments DTAP/TDAP/TD VACCINES (1 - Tdap) 1986 HEPATITIS B VACCINES (1 of 3 - 19+ 3-dose series) 1986 Traditional Medicare (ACO) A nnual Wellness Visit 1986 COLORECTAL SCREENING 2012 Colorectal Cancer Screening 2012 FIT-DNA Q 3 years 2012 FIT/FOBT Q 1 year 2012 Flex Sig/CT Colonography Q 5 years 2012 ZOSTER VACCINE (1 of 2) 2017 Preventative Visit- Commercial 06/08/2024 INFLUENZA VACCINE (#1) 2025 03/29/2022 BREAST CANCER SCREENING 05/10/2025 05/10/2024, 05/10 Insurance MEDICARE PART A AND B [employer] [facility] [id number] Care Teams Supervisor Phosphorus Processing Relationship Specialty Start Date End Date Jon Landin MD PCP - General Family Practice 07/16/22
--- OUTSIDE RECORDS SUMMARY | 2025-05-02 11:31 | XMS_ITS | Clinical Summary ---
Author Organization [facility] Address [address] [place] [address] Care Team Providers Care Aerodynamic Consultant Name Role Phone Simi Yun Primary Care Provider [phone] Allergies Active Allergy Reactions Criticality Noted Date Comments Penicillins Other (See comments) Reaction: TETANUS, , Tetanus Toxoid Surgical History Surgery Date Site/Laterality Comments EPIDURAL INJECTION LUMBOSACRAL 07/15/2013 N/A Social History Tobacco Use Types Packs/Day Years Used Date Smoking Tobacco: Never Assessed Comments Unknown Sex and Gender Information Value Date Recorded Sex Assigned at Not on file 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
--- OUTSIDE RECORDS SUMMARY | 2025-05-02 11:31 | XMS_ITS | Encounter Summary ---
Author Organization [facility] Address [address] [place] [address] Care Team Providers Care Hardware Installation Coordinator Name Role Phone Jon Landin MD Primary Care Provider [phone] Encounter Details Date Type Department Care Team (Late st Contact Info) Description 01/21/[address] [facility] [place], [place] [address] Rivas Mark MD 3 [facility] [address] [place] [id number] Social History Tobacco Use Types Packs/Day Years [...] DETECTED NOT DETECTED 01/22/2020 10:18 PM CDT [facility] Comment: A Not Detected (negative) [...] providers and patients using the following websites: https://www.[employer].Partnered/home/Covid-19/HCP/QuestIVD/fact- sheet.html https://www.[employer].Partnered/home/Covid-19/Patients/ QuestIVD/fact-sheet.html This test has been authorized by the FDA under an Emergency Use Authorization (EUA) for use by authorized laboratories. Due to the current public health emergency, [facility] is receiving a high volume of samples [...] about COVID-19 can be found at the [facility] website: www.[employer].Partnered/Covid19. Test performed at [facility] [place] [address] [facility] [place] [address] Director: KAROLINE TROTTER DO,MPH NASOPHARYNGEAL SWAB / Unknown 01/21/2020 9:44 AM CDT Rivas Mark MD MICROBIOLOGY - GENERAL TRISH SANDOVAL Final Result [employer] [facility] [address] [place] [address], documented in this encounter Visit Diagnoses Diagnosis Encounter for screening colonoscopy- Primary Special screening for malignant neoplasms, colon documented in this encounter Additional Health Concerns Infection Onset Date Last Indicated Resolved Time COVID-19 Rule Out 01/21/2020 01/21/2020 01/22/2020 10:18 PM CDT documented as of this encounter Care Teams Hardware Installation Coordinator Relationship Specialty Start Date End Date Jon Landin MD [address] [address] PCP - General FAMILY PRACTICE 01/24/20 documented as of this encounter
[2025-05-02 12:20] LABS: Anion Gap 8 mmol/L (4-12); Blood Urea Nitrogen 17 mg/dL (7-17); Calcium 9.6 mg/dL (8.4-10.2); Carbon Dioxide 25 mmol/L (22-30); Chloride 102 mmol/L (98-107); Estimated Glomerular Filt Rate 59; Glucose 135 mg/dL (65-110); Potassium 3.7 mmol/L (3.4-5.0); Sodium 135 mmol/L (137-145)
[2025-05-02 12:21] LABS: Iron 215 ug/dL (37-170)
[2025-05-02 12:44] LABS: Percent Iron Saturation 48 % (20-50)
[2025-05-02 13:05] LABS: Ferritin 5.51 ng/mL (11.1-264)
[2025-05-02 13:16] LABS: Vitamin B12 > 1000.0 pg/mL (239-931)
== END 2025-05-02 10:16 | disposition home or self-care (01) ==
LOC: ANHLAB 10:17
PROVIDERS: PCP Nurse Practitioner Family; Visit Provider Internal Medicine Hematology & Oncology
DX: D64.9 Anemia, unspecified (principal)
CPT/HCPCS: 36415; 80048; 82607; 82728; 83540; 83550; 85025

== ENCOUNTER 2025-05-18 13:49 | Outpatient (CLI) | payer OTHER, MEDICARE, SELFPAY ==
--- NOTE | ~2025-05-18 | PE_ITS ---
EXAMINATION: PET skull to mid thigh DATE: 05/18/2025 15:24 INDICATION: Solitary pulmonary nodule TECHNIQUE: Blood glucose level was 102 mg/dL. 9.77 mCi of 18-fluorodeoxyglucose (18-FDG) was administered i.v. Low dose computed tomography (CT) images were acquired from the base of the brain to the proximal thighs for attenuation correction and anatomic localization. Positron emission tomography (PET) images were acquired in the same distribution beginning 50 minutes after injection. Images including fused PET/CT images were reconstructed in axial, coronal, and sagittal planes. Automated exposure control technique was employed. The dose- length product was 620.14mGy-cm. COMPARISON: None FINDINGS: Head/neck: There is symmetric increased activity in the oral cavity, palatine tonsils, parotid glands, submandibular glands, laryngeal muscles and ocular muscles without CT correlate, likely physiologic. No pathologically enlarged cervical lymphadenopathy or suspicious foci of increased FDG uptake in the visualized head or neck. Chest: Again seen is mild biapical pleural-parenchymal scarring without evident FDG activity. There are some discoid atelectasis/scarring at the medial right lower lung along side a right-sided lateral plate and screw fixation for a lower thoracic anterior spinal fusion. No other suspicious pulmonary nodules, pneumonia or pleural effusion. Heart size is normal. No pericardial effusion. Thoracic aorta is normal in caliber. No pathologically enlarged or FDG avid thoracic lymphadenopathy. Moderate to large sliding-type hiatal hernia. Instrumented posterior spinal fusion beginning at T2 and extending caudally to L3. Abdomen/pelvis/proximal thighs: Physiologic renal accumulation and excretion of FDG activity in the kidneys, bladder and along portions of ureters. Photopenic defects associated with a 5.6 cm cyst at the upper pole of the left kidney. Normal degree and heterogenous pattern of increased uptake throughout the liver without radiologic correlate or dominant FDG avid lesion. The gallbladder, pancreas, spleen and bilateral adrenal glands are normal. Mild to moderate uptake scattered throughout the bowels without radiologic correlate, also likely physiologic. The uterus is not identified and has likely been surgically resected. No other abnormal foci of increased FDG uptake or pathologically enlarged lymphadenopathy in the abdomen, pelvis or proximal thighs. IMPRESSION: 1. No increased FDG uptake associated with chronic pleural-parenchymal scarring at the bilateral apices. No FDG avid lesions in the neck, chest, abdomen or pelvis suspicious for primary malignancy or metastatic disease. 2. Moderate to large sliding-type hiatal hernia. Reviewed, dictated and finalized at location A. RECEPTIONIST IMPRESSION: 1. No increased FDG uptake associated with chronic pleural-parenchymal scarring at the bilateral apices. No FDG avid lesions in the neck, chest, abdomen or pe lvis suspicious for primary malignancy or metastatic disease. 2. Moderate to large sliding-type hiatal hernia.
== END 2025-05-18 13:50 | disposition home or self-care (01) ==
PROVIDERS: PCP Nurse Practitioner Family; Visit Provider Nurse Practitioner Family
DX: R91.1 Solitary pulmonary nodule (principal); K44.9 Diaphragmatic hernia without obstruction or gangrene
CPT/HCPCS: 78815; A9552

== ENCOUNTER 2025-05-19 09:49 | Outpatient (CLI) | payer OTHER, MEDICARE, SELFPAY ==
--- NOTE | ~2025-05-19 | US_ITS ---
EXAM/PROCEDURE: US renal BI HISTORY: N28.1 - Cyst of kidney, acquired COMPARISON: None available. TECHNIQUE: Bilateral renal ultrasound FINDINGS: Right kidney: 10.9 x 3.8 x 5.0 cm normal in appearance. Left kidney: 10.2 x 5.0 x 5.0 cm. Simple appearing cyst measuring 6 x 5.5 x 5.7 cm in the left kidney. Bilateral ureteral jets are demonstrated. The urinary bladder is incompletely visualized but no obvious urinary bladder abnormality seen. IMPRESSION: 6 cm probable simple cyst left kidney. Reviewed, dictated and finalized at location A. RICT ADVISER
== END 2025-05-19 09:50 | disposition home or self-care (01) ==
PROVIDERS: PCP Nurse Practitioner Family; Visit Provider Nurse Practitioner Family
DX: N28.1 Cyst of kidney, acquired (principal)
CPT/HCPCS: 76770

== ENCOUNTER 2025-05-25 07:28 | Outpatient (CLI) | payer OTHER, MEDICARE, SELFPAY ==
--- NOTE | ~2025-05-25 | NM_ITS ---
EXAMINATION: NM stress w perf spect multi DATE: 05/25/2025 10:44 INDICATION: Dyspnea TECHNIQUE: Rest images were obtained following intravenous administration of 7.6 mCi Tc99m tetrofosmin (Myoview). The patient performed an exercise activity. At peak exercise, 34.5 mCi Tc99m tetrofosmin (Myoview) was administered intravenously, and stress images were obtained. Data was reconstructed into short axis and horizontal and vertical long axis SPECT images. Gated SPECT images were also obtained. COMPARISON: None. FINDINGS: There is a small mild reversible perfusion defect involving the mid and basilar anterolateral segments consistent with ischemia. No nonreversible infarct. There is normal left ventricular chamber size, wall motion and ejection fraction. Left ventricular ejection fraction measures >70%. IMPRESSION: 1. Small region of mild reversible ischemia at the mid anterolateral and basilar anterolateral segments. 2. Left ventricular ejection fraction measuring >70%. Reviewed, dictated and finalized at location A. CHUTE RIGGER IMPRESSION: 1. Small region of mild reversible ischemia at the mid anterolateral and basila r anterolateral segments. 2. Left ventricular ejection fraction measuring >70%.
--- OUTSIDE RECORDS SUMMARY | 2025-05-25 07:36 | XMS_ITS | Clinical Summary ---
Author Organization [facility] Address [address] [place] [address] Care Team Providers Care High School Admissions Representative Name Role Phone Simi Yun Primary Care Provider [phone] Allergies Active Allergy Reactions Criticality Noted Date Comments Penicillins Other (See comments) Reaction: TETANUS, , Tetanus Toxoid Surgical History Surgery Date Site/Laterality Comments EPIDURAL INJECTION LUMBOSACRAL 07/15/2013 N/A Social History Tobacco Use Types Packs/Day Years Used Date Smoking Tobacco: Never Assessed Comments Unknown Sex and Gender Information Value Date Recorded Sex Assigned at Not on file Legal Sex Female 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
--- OUTSIDE RECORDS SUMMARY | 2025-05-25 07:36 | XMS_ITS | Clinical Summary ---
Author Organization [facility] Address [address] [facility] [place] [address] Care Team Providers Care Physiognomist Name Role Phone Jon Landin MD Primary Care Provider [phone] Allergies Active Allergy Reactions Criticality Noted Date [...] 2 Active fluticasone propionate (FLONASE) 50 mcg/spray Seltzer, Suspension nasal inhaler Administer 2 Sprays in [...] Encounters Date Type Department Care Team Description 05/23/2025 External Device Data STL ABSTRACTION Provider, Abstract 05/23/2025 External Device Data STL ABSTRACTION Provider, Abstract 05/16/2025 External Device Data STL ABSTRACTION Provider, Abstract 05/11/2025 4:30 PM ASP NET DEVELOPER Telephone Check Up [facility] Oncology and Hematology [facility] [address] [place] [address] Alfonzo Tate MD Chronic anemia (Primary Dx) 05/10/2025 Orders Only [facility] Oncology and Hematology [facility] [address] [place] [address] Alfonzo Tate MD 05/02/2025 Orders Only [facility] Oncology and Hematology - [place] [address] [place] [address] Alfonzo Tate MD 04/25/2025 External Device Data STL ABSTRACTION Provider, [...] Care Team (Late st Contact Info) Description 05/26/2025 2:00 PM ASP NET DEVELOPER Telephone Check Up [facility] Oncology and Hematology [place] [address] [place] [address] Alfonzo Tate MD [facility] [employer] [address] [place] [phone] 07/25/2025 9:45 AM ASP NET DEVELOPER Office Visit [facility] Oncology [facility] [address] [place] [address] Alfonzo Tate MD [facility] [employer] [address] [place] [phone] Health Maintenance Due Date Last Done Comments [...] 03/29/2022 BREAST CANCER SCREENING 05/10/2025 05/10/2024, 05/10 Procedures Procedure Name Priority Date/Time Associated Diagnosis Comments CBC WITH AUTODIFFERENTIAL Routine 2024 3:37 PM ASP NET DEVELOPER BASIC METABOLIC PANEL Routine 05/02/2025 8:01 AM ASP NET DEVELOPER from Last 3 Months Results * CBC WITH AUTODIFFERENTIAL (05/02/2025 3:37 PM ASP NET DEVELOPER) Blood Alfonzo Tate MD HEMATOLOGY ORDERABLES Final Res ult * BASIC METABOLIC PANEL (05/02/2025 8:01 AM ASP NET DEVELOPER) Blood Alfonzo Tate MD CHEMISTRY ORDERABLES Final Resu lt from Last 3 Months Insurance MEDICARE PART A AND B [employer] [place] [id number] Care Teams Physiognomist Relationship Specialty Start Date End Date Jon Landin MD PCP - General Family Practice 07/16/22
--- OUTSIDE RECORDS SUMMARY | 2025-05-25 07:36 | XMS_ITS | Encounter Summary ---
Author Organization [facility] Address [address] [place] [address] Care Team Providers Care Cutter Tender Name Role Phone Jon Landin MD Primary Care Provider [phone] Encounter Details Date Type Department Care Team (Late st Contact Info) Description 05/23/2025 External Device Data STL ABSTRACTION Provider, Abstract NO ADDRESS ON FILE Social History Tobacco Use Types Packs/Day Years Used Date Smoking Tobacco: Never Smokeless Tobacco: Never Alcohol Use Standard Drinks/Week Comments Yes 0 (1 standard drink = 0.6 oz pur e alcohol) Comments Unknown Sex and Gender Information Value Date Recorded Sex Assigned at Not on file Legal Sex Female 11:12 PM CDT Gender Identity Not on file Sexual Orientation Not on file documented as of this encounter Plan of Treatment Upcoming Encounters Date Type Department Care Team (Late st Contact Info) Description 05/26/2025 2:00 PM SKILLS AUDITOR Telephone Check Up [facility] Oncology [facility] Hematology [facility] [address] [place] [address] Alfonzo Tate MD [address] [place] [address] [employer] [address] [place] [phone] 07/25/2025 9:45 AM SKILLS AUDITOR Office Visit [facility] Oncology [facility] [address] [place] [address] Alfonzo Tate MD [address] [facility] [employer] G[employer] [address] [place] [phone] documented as of this encounter Visit Diagnoses Not on filedocumented in this encounter Care Teams Cutter Tender Relationship Specialty Start Date End Date Jon Landin MD PCP - General Family Practice 07/16/22 documented as of this encounter
--- OUTSIDE RECORDS SUMMARY | 2025-05-25 07:36 | XMS_ITS | Encounter Summary ---
Author Organization [facility] Address [address] [place] [address] Care Team Providers Care Anodizing Line Operator Name Role Phone Jon Landin MD Primary Care Provider [phone]- [phone] Encounter Details Date Type Department Care Team [...] st Contact Info) Description 05/26/2025 2:00 PM PHOTO LAB MANAGER Telephone Check Up [facility] Oncology [facility] Hematology [facility] [address] [place] [address] Alfonzo Tate MD [address] [place] [address] [facility] [address] [place] [phone] 07/25/2025 9:45 AM PHOTO LAB MANAGER Office Visit [facility] Oncology [facility] [address] [place] [address] Alfonzo Tate MD [address] [facility] [address] [place] [phone] documented as of this encounter Visit Diagnoses Not on filedocumented in this encounter Care Teams Anodizing Line Operator Relationship Specialty Start Date End Date Jon Landin MD PCP - General Family Practice 07/16/22 documented as of this encounter
--- NOTE | 2025-05-25 08:28 | EST_ITS ---
Patient Info Name: Santa Harden Age: 60 years : 1965 Gender: Female Ht: 66 in Wt: 139 lbs BSA: 1.72 m2 HR: 67 bpm BP: 103 / 72 mmHg Exam Date: 05/25/2025 8:28 AM Patient Status: O Admit Date: 05/25/2025 Exam Type: CA stress test treadmill w NM A nuclear stress test was performed. Staff Referring Physician: Kim Menard Attending Provider: Kim Menard Exercise Technologist: La Nena Youngblood Exercise Physician: Milan Frias DO Summary 1. 1. Negative Mahesh exercise stress test for ischemic ST changes by ECG criteria. However, patient achieved only 76% MPHR for age group which reduces sensitivity of the test. 2. 2. Reduced functional capacity, achieving 7 METs of workload. 3. 3. Appropriate HR response to exercise. 4. 4. Appropriate HR recovery at 1 minute post exercise. 5. 5. Nuclear scan to follow and will be reported separately. Please correlate with it. 6. 6. Patient informed of the above results. Protocol: Mahesh Stress ECG Details Stage: REST Duration (min): 0 min : 46 sec Speed (mph): 0.0 Grade (%): 0 HR (bpm): 69 SBP (mmHg): 103 DBP (mmHg): 72 METS: --- Stage: STAGE 1 Duration (min): 1 min : 0 sec Speed (mph): 1.7 Grade (%): 10 HR (bpm): 95 SBP (mmHg): 103 DBP (mmHg): 72 METS: --- Stage: STAGE 1 Duration (min): 2 min : 0 sec Speed (mph): 1.7 Grade (%): 10 HR (bpm): 103 SBP (mmHg): 103 DBP (mmHg): 72 METS: --- Stage: STAGE 1 Duration (min): 3 min : 0 sec Speed (mph): 1.7 Grade (%): 10 HR (bpm): 106 SBP (mmHg): 103 DBP (mmHg): 72 METS: --- Stage: STAGE 2 Duration (min): 1 min : 0 sec Speed (mph): 2.5 Grade (%): 12 HR (bpm): 111 SBP (mmHg): 103 DBP (mmHg): 72 METS: --- Stage: STAGE 2 Duration (min): 2 min : 0 sec Speed (mph): 2.5 Grade (%): 12 HR (bpm): 116 SBP (mmHg): 103 DBP (mmHg): 72 METS: --- Stage: STAGE 2 Duration (min): 3 min : 0 sec Speed (mph): 2.5 Grade (%): 12 HR (bpm): 118 SBP (mmHg): 103 DBP (mmHg): 72 METS: --- Stage: STAGE 3 Duration (min): 0 min : 6 sec Speed (mph): 3.4 Grade (%): 14 HR (bpm): 119 SBP (mmHg): 103 DBP (mmHg): 72 METS: --- Stage: RECOVERY Duration (min): 0 min : 53 sec Speed (mph): 0.0 Grade (%): 0 HR (bpm): 110 SBP (mmHg): 103 DBP (mmHg): 72 METS: --- Stage: RECOVERY Duration (min): 1 min : 53 sec Speed (mph): 0.0 Grade (%): 0 HR (bpm): 93 SBP (mmHg): 103 DBP (mmHg): 72 METS: --- Stage: RECOVERY Duration (min): 2 min : 53 sec Speed (mph): 0.0 Grade (%): 0 HR (bpm): 86 SBP (mmHg): 101 DBP (mmHg): 88 METS: --- Stage: RECOVERY Duration (min): 3 min : 53 sec Speed (mph): 0.0 Grade (%): 0 HR (bpm): 85 SBP (mmHg): 101 DBP (mmHg): 88 METS: --- Stage: RECOVERY Duration (min): 4 min : 53 sec Speed (mph): 0.0 Grade (%): 0 HR (bpm): 81 SBP (mmHg): 101 DBP (mmHg): 88 METS: --- Stage: RECOVERY Duration (min): 5 min : 48 sec Speed (mph): 0.0 Grade (%): 0 HR (bpm): 84 SBP (mmHg): 101 DBP (mmHg): 88 METS: --- Rest HR: 70 bpm Peak HR: 123 bpm Rest Sys BP: 103 mmHg Peak Sys BP: 101 mmHg Max Pred HR: 162 bpm % Max Pred HR: 76 % Target HR: 138 bpm Max RPP: 12,423 bpm*mmHg Parker Score: -1 Termination Reason: Maximal effort/unable to continue Cardiac Symptoms: Shortness of breath, Back pain Max ST Seg Deviation: 1.40 mm Total Time: 6 min : 6 sec Rest Delgado BP: 72 mmHg Peak Delgado BP: 88 mmHg Angina Score: None Total METS: 7.1 Resting ECG Sinus rhythm. Stress ECG No ST changes. Arrhythmias None. Report Signatures
== END 2025-05-25 07:29 | disposition home or self-care (01) ==
PROVIDERS: PCP Nurse Practitioner Family; Visit Provider Nurse Practitioner Family
DX: R06.09 Other forms of dyspnea (principal)
CPT/HCPCS: 78452; 93017; A9502

== ENCOUNTER 2025-06-05 09:10 | Outpatient (CLI) | payer OTHER, MEDICARE, SELFPAY ==
--- OUTSIDE RECORDS SUMMARY | 2025-06-02 09:00 | XMS_ITS | Encounter Summary ---
Author Organization [facility] Address [address] [place] [address] Care Team Providers Care Marketing Associate Name Role Phone Jon Landin MD Primary Care Provider [phone] Reason for Visit * Treatment/Therapy Plan Authorization (Routine) - Authorized Specialty Diagnoses / Procedures Referred By Contac t Referred To Contact Diagnoses Iron deficiency anemia, unspecified Procedures VENOFER INTRAVENOUS INFUSION FOR THERAPY UP TO 1HR INFUSION NORMAL SALINE SOLUTION 1000 CC Iron sucrose (VENOFER) 300 mg in sodium chloride 0.9 % 250 mL IVPB weekly x 3 sodium chloride 0.9% infusion Kim Menard, HADOOP APPLICATION DEVELOPER [address] [place] [address] Phone: tel: fax: [facility] at [address] [address] Phone: tel: Referral ID Status Reason Start Date Expiration Date Visits Requested Visits Authorized [id number] Authorized Medication 05/18/2025 06/09/2025 3 3 Encounter Details Date Type Department Care Team (Late st Contact Info) Description 06/02/2025 9:00 AM INTERIOR DECORATOR PAINTING Treatment [facility] at [address] [address] Kim Menard, HADOOP APPLICATION DEVELOPER [address] [place], [place] [id number] Social History Tobacco Use Types Packs/Day Years [...] on file documented as of this encounter Last Filed Vital Signs Vital Sign Reading Time Taken Comments Blood Pressure 113/82 06/02/2025 8:56 AM INTERIOR DECORATOR PAINTING Pulse 70 06/02/2025 8:56 AM INTERIOR DECORATOR PAINTING Temperature 37.1 C (98.8 F) 06/02/2025 8:56 AM INTERIOR DECORATOR PAINTING Respiratory Rate 22 06/02/2025 8:56 AM INTERIOR DECORATOR PAINTING Oxygen Saturation 98% 06/02/2025 11:24 AM INTERIOR DECORATOR PAINTING Inhaled Oxygen Concentration - - Weight - - Height - - Body Mass Index - - documented in this encounter Progress Notes * Cheryl Mccarthy RN - 06/02/2025 9:00 AM CST Pt tolerated infusion well without complications. Pt ambulatory out of clinic with a steady gait. VSS RIOR DECORATOR PAINTING documented in this encounter Plan of Treatment Not on file documented as of this encounter Visit Diagnoses Diagnosis Iron deficiency anemia, unspecified- Primary documented in this encounter Administered Medications Inactive Administered Medications - up to 3 most recent administrations Medication Order MAR Action Action Date Dose Rate Site iron sucrose (VENOFER) 300 mg in sodium chloride 0.9 % 250 mL IVPB 300 mg, Intravenous, at 193.3 mL/hr, Weekly, First dose on Thu06/02/25 at 0915, Until DiscontinuedIndications:Iron deficiency anemia, unspecified Restarted 06/02/2025 11:01 AM INTERIOR DECORATOR PAINTING 193.3 mL/hr New Bag 06/02/2025 9:28 AM INTERIOR DECORATOR PAINTING 300 mg 193.3 mL/hr sodium chloride 0.9% infusion at 1-999 mL/hr, Intravenous, Continuous, Starting on Thu06/02/25 at 0915, Until Thu06/02/25 at 1326, For TKO infusion and flushing.Indications:Iron deficiency anemia, unspecified Restarted 06/02/2025 11:08 AM INTERIOR DECORATOR PAINTING 194 mL/hr Restarted 06/02/2025 10:58 AM INTERIOR DECORATOR PAINTING 194 mL/hr Infusion Rate/Dose Verify 06/02/2025 9:27 AM INTERIOR DECORATOR PAINTING 194 mL/hr documented in this encounter Care Teams Marketing Associate Relationship Specialty Start Date End Date Jon Landin MD [address] [address] PCP - General FAMILY PRACTICE 01/24/20 documented as of this encounter
--- NOTE | ~2025-06-05 | MMUS_ITS ---
EXAMINATION: US breast RT limited, MM diagnostic pari BI w giovani HISTORY: Follow-up TECHNIQUE: Craniocaudal and mediolateral oblique 3-D tomosynthesis images were obtained and synthetic 2-D images were generated. CAD analysis was submitted and interpreted. Grayscale sonography over the area(s) of interest with color Doppler if there is a finding. COMPARISON: November,. May,. 2022. BREAST PARENCHYMAL COMPOSITION: Dense: The breasts are heterogeneously dense, which may obscure small masses. MAMMOGRAM FINDINGS: There are findings consistent with the known breast cysts. No suspicious masses are seen. There are no suspicious calcifications. No unexplained architectural distortion is seen. There are no skin or nipple abnormalities identified. There is no adenopathy seen on the images submitted. ULTRASOUND FINDINGS: Again seen is a 5 mm cyst at 10:00, unchanged. There is a solid-appearing, oval, hypoechoic mass with circumscribed margins. It has a maximum dimension of 12 mm at 10:00, abutting the chest wall. This continues to be unchanged. There are echogenic striations versus septations, less likely. The margins are circumscribed, and it has a parallel orientation. This is considered benign. IMPRESSION: No mammographic or sonographic evidence to suggest malignancy is seen. The patient may return to screening mammography as per ACR guidelines. BI-RADS 2 - Benign. Reviewed, dictated and finalized at location C. IC WORKER SUPERVISOR IMPRESSION: No mammographic or sonographic evidence to suggest malignancy is seen. The sarah ent may return to screening mammography as per ACR guidelines. BI-RADS 2 - Benign.
--- OUTSIDE RECORDS SUMMARY | 2025-06-05 09:27 | XMS_ITS | Clinical Summary ---
Author Organization [facility] Address [address] [place] [id number] Care Team Providers Care Business Unit Director Name Role Phone iSmi Yun Primary Care Provider [phone] Allergies Active Allergy Reactions Criticality Noted Date Comments Penicillins Other (See comments) Reaction: TETANUS, , Tetanus Toxoid Surgical History Surgery Date Site/Laterality Comments EPIDURAL INJECTION LUMBOSACRAL 07/15/2013 N/A Social History Tobacco Use Types Packs/Day Years Used Date Smoking Tobacco: Never Assessed Comments Unknown Sex and Gender Information Value Date Recorded Sex Assigned at Not on file Legal Sex Female 3:03 PM MEDICAL LIAISON Gender Identity Not on file Sexual Orientation [...] 02/16/2014 1:00 PM CDT Plan of Treatment Health Maintenance Due Date Last Done Comments Breast Cancer Screening-Mammogram 1965 Cervical Cancer Screening 1965 Colon Cancer Screening-Colonoscopy 1965 Depression Screening 1965 Hepatitis C Screening 1965 DTaP/Tdap/Td Vaccine (1 - Tdap) 1978 Hepatitis B Screening 1985 Regular Well Visit/Exam 18-64 1985 Zoster Vaccine (1 of 2) 2017 Influenza Vaccine (#1) 2025 Pneumococcal vaccine <65 Aged Out No longer eligible based on patient's age to complete this topic Insurance [facility] CHOICE PLUS MEDICARE Care Teams Business Unit Director Relationship Specialty Start Date End Date Simi Yun PA [address] [place] [address] PCP - General Physician Repair Service Dispatcher 05/06/22
--- OUTSIDE RECORDS SUMMARY | 2025-06-05 09:27 | XMS_ITS | Encounter Summary ---
Author Organization [facility] Address [address] [place] [address] Care Team Providers Care Parts Runner Name Role Phone Jon Landin MD Primary Care Provider [phone] Encounter Details Date Type Department Care Team (Late st Contact Info) Description 01/21/2020 Prep for Procedure [facility] [place], [place] [id number] Rivas Mark MD 3 [facility] Curt [address] [id number] Social History Tobacco Use Types Packs/Day Years [...] DETECTED NOT DETECTED 01/22/2020 10:18 PM CDT [facility] Comment: A Not Detected [...] providers and patients using the following websites: https://www.[employer]/home/Covid-19/HCP/QuestIVD/fact- sheet.html https://www.[employer]/home/Covid-19/Patients/ QuestIVD/fact-sheet.html This test has been authorized by the FDA under an Emergency Use Authorization (EUA) for use by authorized laboratories. Due to the current public health emergency, [facility] is receiving a high volume of samples [...] about COVID-19 can be found at the [facility] website: www.[employer]/Covid19. Test performed at [facility] [place] [address] [facility] [place] [address] Director: KAROLINE TROTTER DO,MPH NASOPHARYNGEAL SWAB / Unknown 01/21/2020 9:44 AM CDT Rivas Mark MD MICROBIOLOGY - GENERAL TRISH SANDOVAL Final Result [employer] [facility] [address] [place] [address], documented in this encounter Visit Diagnoses Diagnosis Encounter for screening colonoscopy- Primary Special screening for malignant neoplasms, colon documented in this encounter Additional Health Concerns Infection Onset Date Last Indicated Resolved Time COVID-19 Rule Out 01/21/2020 01/21/2020 01/22/2020 10:18 PM CDT documented as of this encounter Care Teams Parts Runner Relationship Specialty Start Date End Date Jon Landin MD [address] [address] PCP - General FAMILY PRACTICE 01/24/20 documented as of this encounter
--- OUTSIDE RECORDS SUMMARY | 2025-06-05 09:27 | XMS_ITS | Clinical Summary ---
Author Organization [facility] Address [address] [place] [address] Care Team Providers Care Prefitter Doors Name Role Phone Jon Landin MD Primary Care Provider [phone] Allergies Active Allergy Reactions Criticality Noted Date Comments Penicillins Unknown 01/19/2020 Tetanus Toxoid-Containing Vaccines Unknown 0 01/19/2020 Medications zolpidem 10 MG tablet 12/23/2019 Active cyclobenzaprine 10 MG tablet Take 10 mg by mouth as needed for Muscle Spasms. Active Albuterol (VENTOLIN IN) Inhale into the lungs as needed. Active Active Problems Problem Noted Date Diagnosed Date Iron deficiency anemia, unspecified 05/18/2025 Encounters Date Type Department Care Team Description 06/02/2025 9:00 AM SNUFF CONTAINER INSPECTOR Treatment [facility], [address] [address] Kim Menard NP 06/02/2025 Travel 05/26/2025 8:00 AM SNUFF CONTAINER INSPECTOR Treatment [facility] at [facility], [address] [address] Kim Menard NP Infusion Therapy 05/26/2025 Travel 05/19/2025 12:30 PM SNUFF CONTAINER INSPECTOR Treatment [facility] at [facility], [place] [address] [place] [address] Kim Menard NP Infusion Therapy 05/19/2025 Travel 05/18/2025 Orders Only [facility] at [facility], [address] [address] Kim Menard NP from Last 3 Months Social History Tobacco Use Types Packs/Day Years [...] Comments Blood Pressure 113/82 06/02/2025 8:56 AM SNUFF CONTAINER INSPECTOR Pulse 70 06/02/2025 8:56 AM SNUFF CONTAINER INSPECTOR Temperature 37.1 C (98.8 F) 06/02/2025 8:56 AM SNUFF CONTAINER INSPECTOR Respiratory Rate 22 06/02/2025 8:56 AM SNUFF CONTAINER INSPECTOR Oxygen Saturation 98% 06/02/2025 11:24 AM SNUFF CONTAINER INSPECTOR Inhaled Oxygen Concentration - - Weight 65.3 [...] of 3 - 19+ 3-dose series) 1986 06/25/2001, 02/03/2001, 12/31/2000 Mammogram Screening 2007 Pneumococcal Vaccine: 50+ Years (1 of 1 - PCV) 2017 COVID-19 Vaccine ( - 2024-2 6 season) 2025 03/25/2021, 08/25/2020, 08/04/2020 Influenza Adult (#1) 2025 03/29/2022, 03/25/2021, 03/08/2020 Colorectal Cancer Screening Colonoscopy (10 Years) 03/16/2035 03/16/2025, 01/24/2020 Zoster Vaccines Completed 07/09/2020, 04/06/2020 Hepatitis A Vaccines Aged Out No long er eligible based on patient's age to complete this topic Meningococcal B Vaccine Aged Out No l onger eligible based on patient's age to complete this topic Meningococcal Vaccine Aged Out No abdirizak rogelio eligible based on patient's age to complete this topic RSV Immunizations Under 20 Months Aged Out No longer eligible b ased on patient's age to complete this topic Medical Devices Implanted Type Area Lead Software Test Engineer Device Identifier Shelf Expiration Date Model / Serial / Lot Dejuan Implanted:Qty: 2 Dejuan Back Screw Implanted:Qty: 26 Screw Back Insurance Care Teams Prefitter Doors Relationship Specialty Start Date End Date Jon Landin MD [address] [address] PCP - General FAMILY PRACTICE 01/24/20
--- OUTSIDE RECORDS SUMMARY | 2025-06-05 09:27 | XMS_ITS | Clinical Summary ---
Author Organization [facility] Address [address] [place] [address] Care Team Providers Care Security Tech Name Role Phone Jon Landin MD Primary Care Provider [phone] Allergies Active Allergy Reactions Criticality Noted Date [...] 2 Active fluticasone propionate (FLONASE) 50 mcg/spray [place], Suspension nasal inhaler Administer 2 Sprays in [...] Encounters Date Type Department Care Team Description 05/26/2025 2:00 PM MANAGER SOCIAL RESPONSIBILITY Telephone Check Up [facility] Oncology and Hematology [facility] [address] [place] [address] Alfonzo Tate MD 05/23/2025 External Device Data STL ABSTRACTION Provider, Abstract 05/23/2025 External Device Data STL ABSTRACTION Provider, Abstract 05/16/2025 External Device Data STL ABSTRACTION Provider, Abstract 05/11/2025 4:30 PM MANAGER SOCIAL RESPONSIBILITY Telephone Check Up [facility] Oncology and Hematology [facility] [address] [place] [address] Alfonzo Tate MD Chronic anemia (Primary Dx) 05/10/2025 Orders Only [facility] Oncology and Hematology - [place] [address] [place] [address] Alfonzo Tate MD 05/02/2025 Orders Only [facility] Oncology and Hematology - [place] [address] [place] [address] Alfonzo Tate MD 04/25/2025 External Device Data [...] Care Team (Late st Contact Info) Description 07/25/2025 9:45 AM MANAGER SOCIAL RESPONSIBILITY Office Visit [facility] Oncology and Hematology [facility] [address] [facility] [address] [place] [address] Alfonzo Tate MD [address] [facility] [address] [place] [address] Health Maintenance Due Date Last [...] CBC WITH AUTODIFFERENTIAL Routine 2024 3:37 PM MANAGER SOCIAL RESPONSIBILITY BASIC METABOLIC PANEL Routine 05/02/2025 8:01 AM MANAGER SOCIAL RESPONSIBILITY from Last 3 Months Results * CBC WITH AUTODIFFERENTIAL (05/02/2025 3:37 PM MANAGER SOCIAL RESPONSIBILITY) Blood us Alfonzo Tate MD HEMATOLOGY ORDERABLES Final Res ult * BASIC METABOLIC PANEL (05/02/2025 8:01 AM MANAGER SOCIAL RESPONSIBILITY) Blood Alfonzo Tate MD CHEMISTRY ORDERABLES Final Resu lt from Last 3 Months Insurance [employer] [id number] Care Teams Security Tech Relationship Specialty Start Date End Date Jon Landin MD PCP - General Family Practice 07/16/22
== END 2025-06-05 09:11 | disposition home or self-care (01) ==
LOC: CHSIMG 09:13
PROVIDERS: PCP Nurse Practitioner Family; Visit Provider Obstetrics & Gynecology
DX: R92.8 Other abnormal and inconclusive findings on diagnostic imaging of breast (principal)
CPT/HCPCS: 76642; 77062; 77066; G0279